=== PATIENT | male | born 1965 | race Caucasian/White ===

== ENCOUNTER → 2020-02-21 11:55 | Outpatient (BNVA) | payer MEDICARE, SELFPAY | PROVIDERS: Family Provider Nurse Practitioner Family; PCP Nurse Practitioner Family; Visit Provider Nurse Practitioner | DX: E11.9 Type 2 diabetes mellitus without complications (principal); E11.65 Type 2 diabetes mellitus with hyperglycemia; Z79.4 Long term (current) use of insulin; E61.1 Iron deficiency; E11.40 Type 2 diabetes mellitus with diabetic neuropathy, unspecified; E78.5 Hyperlipidemia, unspecified; I73.9 Peripheral vascular disease, unspecified; R82.998 Other abnormal findings in urine | CPT/HCPCS: 80053; 80061; 81003; 82044; 83036; 83540; 87077; 87086; 87186 ==

== ENCOUNTER → 2020-05-16 11:35 | Outpatient (BNVA) | payer MEDICARE, SELFPAY | PROVIDERS: Family Provider Nurse Practitioner Family; PCP Nurse Practitioner Family; Visit Provider Internal Medicine Cardiovascular Disease | DX: I10 Essential (primary) hypertension (principal); E11.65 Type 2 diabetes mellitus with hyperglycemia; Z79.4 Long term (current) use of insulin; E11.40 Type 2 diabetes mellitus with diabetic neuropathy, unspecified; E78.5 Hyperlipidemia, unspecified; I73.9 Peripheral vascular disease, unspecified | CPT/HCPCS: 80053; 83036 ==

== ENCOUNTER → 2020-05-26 10:35 | Outpatient (BNVA) | payer MEDICARE, SELFPAY | PROVIDERS: Family Provider Nurse Practitioner Family; PCP Nurse Practitioner Family; Visit Provider Nurse Practitioner | DX: E11.65 Type 2 diabetes mellitus with hyperglycemia (principal); Z79.4 Long term (current) use of insulin | CPT/HCPCS: 80053; 81003; 87077; 87086; 87186 ==

== ENCOUNTER → 2020-08-01 09:09 | Outpatient (BNVA) | payer MEDICARE, SELFPAY | PROVIDERS: Family Provider Nurse Practitioner Family; PCP Nurse Practitioner; Visit Provider Nurse Practitioner | DX: E11.65 Type 2 diabetes mellitus with hyperglycemia (principal); E78.2 Mixed hyperlipidemia; I10 Essential (primary) hypertension; Z79.4 Long term (current) use of insulin | CPT/HCPCS: 80053; 80061; 81003; 83036 ==

== ENCOUNTER → 2021-01-05 15:28 | Outpatient (BNVA) | payer MEDICARE, SELFPAY | PROVIDERS: Family Provider Nurse Practitioner Family; PCP Nurse Practitioner; Visit Provider Nurse Practitioner | DX: E11.65 Type 2 diabetes mellitus with hyperglycemia (principal); Z79.4 Long term (current) use of insulin; E11.40 Type 2 diabetes mellitus with diabetic neuropathy, unspecified; M25.551 Pain in right hip; M25.552 Pain in left hip; E78.2 Mixed hyperlipidemia; I10 Essential (primary) hypertension | CPT/HCPCS: 80053; 80061; 82043; 83036; 85025 ==

== ENCOUNTER → 2021-01-28 09:48 | Outpatient (BNVA) | payer MEDICARE, SELFPAY | PROVIDERS: Family Provider Nurse Practitioner Family; PCP Nurse Practitioner; Visit Provider Nurse Practitioner | DX: E11.65 Type 2 diabetes mellitus with hyperglycemia (principal); M25.551 Pain in right hip; M25.552 Pain in left hip; Z79.4 Long term (current) use of insulin; M54.41 Lumbago with sciatica, right side; M54.42 Lumbago with sciatica, left side | CPT/HCPCS: 72100; 73522 ==

== ENCOUNTER → 2021-02-17 11:14 | Outpatient (BNVA) | payer MEDICARE, SELFPAY | PROVIDERS: Family Provider Nurse Practitioner Family; PCP Nurse Practitioner; Visit Provider Nurse Practitioner | DX: R11.2 Nausea with vomiting, unspecified (principal) | CPT/HCPCS: 80053; 82150; 83690; 85025 ==

== ENCOUNTER → 2021-04-09 15:18 | Outpatient (BNVA) | payer MEDICARE, SELFPAY | PROVIDERS: Family Provider Nurse Practitioner Family; PCP Nurse Practitioner; Visit Provider Nurse Practitioner | DX: E11.65 Type 2 diabetes mellitus with hyperglycemia (principal); Z79.4 Long term (current) use of insulin; E78.2 Mixed hyperlipidemia; E11.40 Type 2 diabetes mellitus with diabetic neuropathy, unspecified; I10 Essential (primary) hypertension | CPT/HCPCS: 80053; 80061; 83036; 85025 ==

== ENCOUNTER 2021-07-20 13:14 | Outpatient (CLI) | payer MEDICARE, SELFPAY ==
--- NOTE | 2021-07-20 13:26 | XR_ITS ---
WS: [id number] LUMBAR SPINE: 3 VIEWS TECHNIQUE: AP, lateral and L5-S1 spot. HISTORY: I73.9 - Peripheral vascular disease, unspecified COMPARISON: 01/28/2021 Lumbar vertebra are normally aligned. Mild narrowing at L5-S1 disc space. Moderate facet joint arthritis at L5-S1. No osteoblastic or osteo lytic disease. SI joints are symmetric bilaterally. No soft tissue abnormalities. Ileostomy RIGHT lower quadrant and colostomy LEFT lower quadrant. Prior cholecystectomy. Short vascul ar stent projects in the location of the proximal LEFT iliac artery. Smaller stent distally in the ex pected location of the LEFT external iliac artery. XR/XR lumbar spine 2-3V* [id number] IMPRESSION: 1. Mild degenerative disc disease L5-S1 with moderate facet joint arthritis at L5-S1. 2. Atherosclerosis aorta. 3. No osteoblastic or osteolytic bone disease.
== END 2021-07-20 13:15 | disposition home or self-care (01) ==
PROVIDERS: PCP Nurse Practitioner; Visit Provider Nurse Practitioner
DX: I73.9 Peripheral vascular disease, unspecified (principal); M51.37 Other intervertebral disc degeneration, lumbosacral region; I70.0 Atherosclerosis of aorta; M47.817 Spondylosis without myelopathy or radiculopathy, lumbosacral region; E11.65 Type 2 diabetes mellitus with hyperglycemia; Z79.4 Long term (current) use of insulin
CPT/HCPCS: 72100; 80053; 80061; 83036; 85025

== ENCOUNTER → 2021-11-09 10:56 | Outpatient (BNVA) | payer MEDICARE, SELFPAY | PROVIDERS: PCP Nurse Practitioner; Visit Provider Nurse Practitioner | DX: E11.65 Type 2 diabetes mellitus with hyperglycemia (principal); Z79.4 Long term (current) use of insulin; I73.9 Peripheral vascular disease, unspecified; E11.40 Type 2 diabetes mellitus with diabetic neuropathy, unspecified; Z93.3 Colostomy status | CPT/HCPCS: 80053; 82043; 83036 ==

== ENCOUNTER 2022-01-17 21:33 | Inpatient (IN) | payer MEDICARE, SELFPAY ==
[2022-01-17 21:45] VITALS: BP 150/75; PULSE 106; RESP 18; TEMP 36.6; O2SAT 99; BMI 23.0
--- NOTE | 2022-01-17 22:35 | XRR_ITS ---
PROCEDURE INFORMATION: Exam: XR Left Hip Exam date and time: 01/17/2022 10:42 PM Age: 56 years old Clinical indication: Hip pain; Left hip TECHNIQUE: Imaging protocol: XR Left hip. Views: 2 or 3 views hip with pelvis when performed. COMPARISON: CR XR hip BI 3-4V wo/w pel [id number] 01/28/2021 9:52 AM FINDINGS: Bones/joints: Unremarkable. No acute fracture. Soft tissues: Unremarkable. Vasculature: There is a stent in the upper pelvis. XR/XR hip LT 2-3V wo/w pel* [id number] IMPRESSION: No acute bony abnormality.
[2022-01-18] VITALS (28 sets, daily range): BP systolic 107–161; BP diastolic 60–92; PULSE 60–102; RESP 9–29; TEMP 36.3–36.7; O2SAT 88–99
--- NOTE | 2022-01-18 00:02 | USR_ITS ---
PROCEDURE INFORMATION: Exam: US Duplex Left Lower Extremity Arteries Or Arterial Bypass Grafts Exam date and time: 01/18/2022 12:22 AM Age: 56 years old Clinical indication: Pain; Leg, lower; Left; Prior surgery; Surgery type: Stents in legs per PT; Additional info: Left lower extremity pain and unable to find pulse TECHNIQUE: Imaging protocol: Left Real-time duplex scan of the arteries or arterial bypass grafts of the left lower extremity with 2-D glez scale, color Doppler flow and spectral waveform analysis. Images documented and saved. COMPARISON: CT pelvis w con* [id number] 11/05/2017 10:16 PM FINDINGS: Left common femoral artery: No occlusion or significant stenosis. Monophasic waveform. Left superficial femoral artery: No occlusion or significant stenosis. Monophasic waveform. Left popliteal artery: No occlusion or significant stenosis. Monophasic waveform. Left calf/foot arteries: No occlusion or significant stenosis in the visualized arteries. Monophasic waveforms. Dorsalis pedis artery and the posterior tibial artery are not seen. US/CV arterial duplex [facility] [id number] IMPRESSION: Monophasic waveforms throughout suggesting diffuse atherosclerotic disease. The posterior tibial and dorsalis pedis arteries are not seen suggesting occlusion.
--- NOTE | 2022-01-18 00:22 | ED_ITS ---
HPI - Extremity Problem General: Chief complaint: Extremity Problem,Nontraumatic Stated complaint: Left Leg Pain Time Seen by Provider: 01/17/22 23:59 History of Present Illness: Patient is a 56-year-old male who comes to the ED with left leg pain and numbness. Past medical history of diabetes, hypertension and peripheral arterial disease. Patient has had femoral stents placed josue aterally. Over the past 3 days he is having pain in his left hip, left leg and some numbness to his foot. When not moving and at rest his pain is minimal but when he gets up moves around pain in his left hip and left leg becomes more severe. Denies any injury or trauma to the left leg or hip to cause symptoms. Associated symptoms: Deny chest pain, fever(s) or rash Review of Systems Const: Denies: fever(s), chills or fatigue Eyes: Denies: change in vision or eye discomfort ENMT: Denies: throat pain, odynophagia, nasal discharge or nasal congestion Card: Denies: chest pain, palpitations, edema, swelling of feet/ankles, dyspnea on exertion or orthopnea Resp: Denies: dyspnea, productive cough or non-productive cough GI: Denies: abdominal pain, nausea, vomiting, diarrhea, constipation or hematochezia : Denies: flank pain, difficulty urinating, dysuria or hematuria Musc: Reports: extremity pain (Left hip and left leg.); Denies: neck pain, back pain or extremity swelling Skin/Breast: Denies: rash or new lesions Neuro: Reports: numbness in extremities (Left foot numbness.); Denies: headache(s) or weakness in extremities PFS ED PFSH: Medical History Abnormal ankle brachial index (DEE) Colostomy present Controlled type 2 diabetes mellitus with hyperglycemia, with long-term current use of insulin Diabetes mellitus with hyperglycemia, with long-term current use of insulin Diabetic neuropathy HTN (hypertension) Hyperlipidemia PAD (peripheral artery disease) Presence of urostomy Type 2 diabetes mellitus with diabetic neuropathy, unspecified Surgical History History of cancer surgery Colon History of colostomy History of urostomy Family History Mother Diabetes Father Cancer Colon Social History Smoking and tobacco status: current every day smoker Second hand smoke exposure: Yes Smoking risk assessment/counseling performed?: Yes Alcohol intake: never Desire information about alcohol rehabilitation?: No Counseling given: No Desire information about substance/drug rehabilitation?: No Counseling given: No Adopted: No Caregiver/support person: No Lives independently: Yes Household members: none Housing: House Marital status: Single Number of children: 2 service: No Current occupational status: employed 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 Current gender identity: Male Physical Exam Const: COMMON NORMALS: patient oriented x3 and alert GENERAL APPEARANCE: cooperative HENMT: COMMON NORMALS: normocephalic HEAD & SCALP: normocephalic MOUTH: Normal oral and palatal mucosa present THROAT: posterior oropharynx normal and uvula midline Neck/C-Spine: COMMON NORMALS: supple GENERAL: Yes normal visual inspection Resp: COMMON NORMALS: normal respiratory effort, No retractions, No use of accessory muscles and clear to auscultation bilaterally AUSCULTATION: clear to auscultation bilaterally Cardio: COMMON NORMALS: regular rate, regular rhythm, S1 normal heart sound present, S2 normal heart sound present, No gallops present (Cardio), No clicks present (Cardio) and No murmurs present (Cardio) RATE: regular rate RHYTHM: regular rhythm HEART SOUNDS: S1 normal heart sound present and S2 normal heart sound present OTHER: Left foot popliteal pulse not detected. GI: COMMON NORMALS: Normal to inspection, nondistended, normoactive bowel sounds present, Soft to palpation, non-tender and no masses PALPATION: Yes Soft to palpation : COMMON NORMALS: Yes no CVA tenderness BLADDER/KIDNEY EXAM: Yes no CVA tenderness Back/Pelvis: COMMON NORMALS: no CVA tenderness Extremity: NARRATIVE EXTREMITY EXAM: Left foot?no palpable popliteal pulse. Foot is cold to the touch and pale. Cap refill on left foot is greater than 3 seconds. Neuro: COMMON NORMALS: patient oriented x3 and moves all extremities SENSORIUM/ORIENTATION: Yes alert Skin: GENERAL SKIN EXAM: dry skin Course ED course: Nurse used Doppler to try to find a pulse in the left foot and was unable to. Consultations: Consultation #1: I contacted Dr. Ricardo and told him about patient case and arterial ultrasound of left lower extremity findings. He wanted to have patient admitted and to start patient on a heparin drip and order CTA. Vital Signs: Vital signs: Vital Signs Temperature 97.6 F 01/18/22 02:33 Pulse Rate 89 01/18/22 02:47 Respiratory Rate 25 H 01/18/22 02:47 Blood Pressure 140/92 01/18/22 02:47 Pulse Oximetry 93 01/18/22 02:47 MDM - Extremity (Nontraumatic) Medical Decision Making Patient is a 56-year-old male comes to the ED with left lower extremity pain. He has a history of peripheral arterial disease and has had bilateral femoral stents placed. Pain started approximately 3 days ago and it worsens with activity and ambulation. He also reports numbness to left foot along with it being cold. Vitals are stable. Patient sitting comfortably on exam bed prior to the room. Left foot is pale and cold to touch and has abnormal cap refill. Left popliteal pulse not palpable. Doppler was used by nurse and unable to obtain left popliteal pulse as well. Ultrasound arterial done on left lower extremity and it showed some monophasic waveforms throughout suggesting diffuse atherosclerotic disease. The posterior tibial and dorsal pedis arteries are not seen suggesting occlusion. I contacted Dr. Ricardo and told him about patient case and arterial ultrasound of left lower extremity findings. He wanted to have patient admitted and to start patient on a heparin drip and order CTA. CBC was unremarkable. Creatinine was 1.3 but the rest of CMP was unremarkable. Dr. Bentley placed the admitting orders. Lab Data I reviewed the patient's lab results. : 01/18/22 00:11 01/18/22 00:11 Radiology Impressions Hip/Pelvis X-Ray 01/17/22 22:35 IMPRESSION: No acute bony abnormality. Duplex Scan Lower Extremity Artery 01/18/22 00:02 IMPRESSION: Monophasic waveforms throughout suggesting diffuse atherosclerotic disease. The posterior tibial and dorsalis pedis arteries are not seen suggesting occlusion. Aorta w/Runoff CTA 01/18/22 01:15 IMPRESSION: Stents in the left common iliac artery origin and external iliac artery. Occlusion of the left common iliac artery through external iliac artery with reconstitution of the common femoral artery via collaterals Minimal distal runoff bilaterally as described above. Extensive intra-abdominal surgical changes as described above. Correlate with the patient's clinical history. Laboratory Results WBC 10.0 10^3/uL (4.0-10.0) 01/18/22 00:11 RBC 4.83 10^6/uL (4.1-5.3) 01/18/22 00:11 Hgb 13.8 g/dL (11.7-16.6) 01/18/22 00:11 Hct 42.4 % (42.0-52.0) 01/18/22 00:11 MCV 87.8 fl (80-94) 01/18/22 00:11 MCH 28.6 pg (28.0-34.0) 01/18/22 00:11 MCHC 32.5 g/dL (30.0-36.0) 01/18/22 00:11 RDW 13.4 % (12.1-15.1) 01/18/22 00:11 Plt Count 200 10^3/cmm (130-400) 01/18/22 00:11 MPV 9.3 fL (7.4-10.4) 01/18/22 00:11 Neut % (Auto) 68.5 % 01/18/22 00:11 Lymph % (Auto) 21.9 % 01/18/22 00:11 [place] % (Auto) 7.8 % 01/18/22 00:11 Eos % (Auto) 1.0 % 01/18/22 00:11 Baso % (Auto) 0.6 % 01/18/22 00:11 Neut # (Auto) 6.83 10^3/uL (1.8-7.7) 01/18/22 00:11 Lymph # (Auto) 2.2 10^3/uL (0.8-4.8) 01/18/22 00:11 [place] # (Auto) 0.8 10^3/uL (0.2-0.9) 01/18/22 00:11 Eos # (Auto) 0.1 10^3/uL (0.0-0.8) 01/18/22 00:11 Baso # (Auto) 0.1 10^3/uL (0.0-0.1) 01/18/22 00:11 Nucleated RBC % (auto) 0 % 01/18/22 00:11 Nucleated RBCs # 0.0 /100WBC 01/18/22 00:11 PT 12.90 SECONDS (12.1-14.9) 01/18/22 00:11 INR 0.95 (0.8-1.2) 01/18/22 00:11 APTT 26.1 SECONDS (23.9-36.7) 01/18/22 00:11 Sodium 139 mmol/L (136-145) 01/18/22 00:11 Potassium 3.5 mmol/L (3.5-5.1) 01/18/22 00:11 Chloride 107 mmol/L (98-107) 01/18/22 00:11 Carbon Dioxide 18 mmol/L (22-29) L 01/18/22 00:11 Anion Gap 17.5 (5-19) 01/18/22 00:11 BUN 18 mg/dL (6-20) 01/18/22 00:11 Creatinine 1.3 mg/dL (0.7-1.2) H 01/18/22 00:11 GFR Calculation 57.5 mL/min (90-130) L 01/18/22 00:11 Glucose 47 mg/dL (65-115) L 01/18/22 00:11 Calculated Osmolality 287 mOsm/kg (285-295) 01/18/22 00:11 Calcium 9.5 mg/dL (8.5-10.5) 01/18/22 00:11 Total Bilirubin 0.3 mg/dL (0.15-1.2) 01/18/22 00:11 AST 13 U/L (0-40) 01/18/22 00:11 ALT 14 U/L (0-41) 01/18/22 00:11 Alkaline Phosphatase 110 IU/L (40-130) 01/18/22 00:11 Creatine Kinase 105 U/L (39-308) 01/18/22 00:11 Total Protein 7.4 g/dL (6.6-8.7) 01/18/22 00:11 Albumin 4.4 g/dL (3.5-5.2) 01/18/22 00:11 Globulin 3.0 g/dL (1.3-4.6) 01/18/22 00:11 Discharge Plan Discharge Patient Disposition: Placed in Observation Admit Provider: Real Avitia Coding Level of Care Code ED Optical Design Engineer for Chg Fwd Exam Comprehensive
[2022-01-18] MEDS: heparin 5,000 unit/mL INJ 1 mL 4000 UNIT IVP (01:04)
[2022-01-18] MEDS: heparin drip 25,000 UNIT/500 ML PREMIX 18.51 UNIT IV (01:07)
[2022-01-18 01:08] LABS: Basophils # 0.1 10^3/uL (0.0-0.1); Basophils % 0.6 %; Eosinophils # 0.1 10^3/uL (0.0-0.8); Hematocrit 42.4 % (42.0-52.0); Hemoglobin 13.8 g/dL (11.7-16.6); Lymphocytes # 2.2 10^3/uL (0.8-4.8); Lymphocytes % 21.9 %; Mean Corpuscular HGB Conc 32.5 g/dL (30.0-36.0); Mean Corpuscular Hemoglobin 28.6 pg (28.0-34.0); Mean Corpuscular Volume 87.8 fl (80-94); Mean Platelet Volume 9.3 fL (7.4-10.4); Monocytes # 0.8 10^3/uL (0.2-0.9); Monocytes % 7.8 %; Neutrophils # 6.83 10^3/uL (1.8-7.7); Neutrophils % 68.5 %; Nucleated Red Blood Cells % 0 %; Platelet Count 200 10^3/cmm (130-400); Red Blood Count 4.83 10^6/uL (4.1-5.3); Red Cell Distribution Width 13.4 % (12.1-15.1)
--- NOTE | 2022-01-18 01:15 | CTR_ITS ---
PROCEDURE INFORMATION: Exam: CTA Angiogram of the Abdominal Aorta and Bilateral Lower Extremities (Run-off) With IV Contrast Exam date and time: 01/18/2022 1:43 AM Age: 56 years old Clinical indication: Discoloration or erythema; Lower extremity; Left; Prior surgery; Surgery date: 6+ months; Patient HX: C/O lle painful and cold HX of stent HX of bladder and rectal CA; Additional info: Left leg pain and poor arterial flow in left leg below knee TECHNIQUE: Imaging protocol: CT angiogram of the abdominal aorta, pelvis and bilateral lower extremities with IV iodinated contrast. 3D rendering (Not supervised by radiologist): MIP and/or 3D reconstructed images were created by the technologist. Radiation optimization: All CT scans at this facility use at least one of these dose optimization techniques: automated exposure control; mA and/or kV adjustment per patient size (includes targeted exams where dose is matched to clinical indication); or iterative reconstruction. Contrast material: OMNI 350; Contrast volume: 95 ml; Contrast route: INTRAVENOUS (IV); COMPARISON: [place] [id number] 01/18/2022 12:22 AM RADIATION DOSE METRICS: Total DLP (mGy-cm): 1146.05 FINDINGS: Aorta: No aortic aneurysm. No aortic dissection. Celiac trunk and mesenteric arteries: No occlusion or significant stenosis. Renal arteries: No occlusion or significant stenosis. Right iliac arteries: There is atherosclerotic narrowing of the right common iliac artery. Right femoral/popliteal arteries: No occlusion or significant stenosis. Right infrapopliteal arteries: Contrast is seen in the right peroneal and anterior tibial arteries to just above the ankle. The posterior tibial artery is patent to the foot. Left iliac arteries: There is a stent at the origin of the left common iliac artery with severe stenosis in the stent likely due to intimal hyperplasia and there is an occluded stent in the left external iliac artery. There is occlusion of the common iliac artery immediately distal to the 1st stent. There is reconstitution of the left external iliac artery due to collaterals. There is occlusion of the left internal iliac artery. Left femoral/popliteal arteries: No occlusion or significant stenosis. Left infrapopliteal arteries: Contrast is seen in the left perineal and anterior tibial arteries to the mid calf. Posterior tibial artery is occluded at the ankle. Liver: No mass. Gallbladder and bile ducts: The patient has had a cholecystectomy. Pancreas: Unremarkable. No mass. No ductal dilation. Spleen: Normal. No splenomegaly. Adrenals: Normal. No mass. Kidneys and ureters: Normal. No mass. Stomach and bowel: Surgical suture material in loops of small bowel in the mid abdomen. There is a left lower quadrant colostomy which appears intact. Appendix: No evidence of appendicitis. Urinary bladder: The bladder has been removed there is a right lower quadrant ileal conduit which appears intact. Reproductive: Unremarkable as visualized. Intraperitoneal space: See Stomach and bowel finding. Lymph nodes: No lymphadenopathy. Bones/joints: No acute fracture. No dislocation. Soft tissues: Unremarkable. CT/CT angio abd aorta runof [id number] IMPRESSION: Stents in the left common iliac artery origin and external iliac artery. Occlusion of the left common iliac artery through external iliac artery with reconstitution of the common femoral artery via collaterals Minimal distal runoff bilaterally as described above. Extensive intra-abdominal surgical changes as described above. Correlate with the patient's clinical history.
[2022-01-18 01:18] LABS: INR 0.95 (0.8-1.2)
[2022-01-18 01:25] LABS: Alanine Aminotransferase 14 U/L (0-41); Albumin Level 4.4 g/dL (3.5-5.2); Alkaline Phosphatase 110 IU/L (40-130); Anion Gap 17.5 (5-19); Aspartate Amino Transferase 13 U/L (0-40); Blood Urea Nitrogen 18 mg/dL (6-20); Calcium 9.5 mg/dL (8.5-10.5); Carbon Dioxide 18 mmol/L (22-29); Chloride 107 mmol/L (98-107); Glomerular Filtration Rate 57.5 mL/min (90-130); Glucose 47 mg/dL (65-115); Osmolality Calculated 287 mOsm/kg (285-295); Potassium 3.5 mmol/L (3.5-5.1); Sodium 139 mmol/L (136-145); Total Bilirubin 0.3 mg/dL (0.15-1.2); Total Protein 7.4 g/dL (6.6-8.7)
--- NOTE | 2022-01-18 01:32 | PC.NURSE ---
patient was given orange juice after FSBG 52.
[2022-01-18] MEDS: iohexol 350 mg/mL 100 mL Btl IV (01:49)
--- NOTE | 2022-01-18 02:32 | PM.HP ---
Providers/Chief Complaint Admitting Physician: Real Avitia Primary Care Provider: Suha Ott, MECHE-C Chief Complaint: Left Leg Pain History of Present Illness Pleasant 56-year-old man with smoking addiction, DM2, HTN, HLD, PAD, history of left common iliac and external iliac stents placed in 2019 presented with several days of worsened pain, reports in both of legs, but worse on the left, with numbness, to touch left leg especially below the knee, pain with walking, numbness of the foot, is able to move the foot including distal foot, but not the toes. He continues to smoke. He is considering that he should quit. Review of Systems Const: Denies: fever(s), chills, body aches or malaise Eyes: Denies: change in vision or eye redness ENMT: Denies: throat pain, oral sores or ear or mastoid pain Card: Reports: leg pain with exertion; Denies: chest pain, edema, pre-syncope or dyspnea on exertion Resp: Denies: dyspnea, productive cough, change in phlegm color or hemoptysis GI: Denies: abdominal pain, nausea, vomiting, diarrhea, constipation, hematochezia or melena : Denies: flank pain, difficulty urinating, urinary frequency or hematuria Musc: Reports: extremity pain; Denies: back pain, joint swelling or joint redness Skin/Breast: Denies: rash, sores or new lesions Neuro: Reports: numbness in extremities; Denies: headache(s), weakness in extremities, dizziness, confusion or seizure-like activity Endo: Denies: polyuria or polydipsia Jeffrey/Lymph: Denies: easy bleeding or purpura All/Imm: Denies: urticaria, throat swelling or tongue swelling Medications/Allergies Home Medications Medication Instructions Recorded Confirmed Last Taken Type blood-glucose meter,continuous #1 each 04/07/20 11/09/21 Unknown Rx (Dexcom G6 Care Navigator) ondansetron 4 mg disintegrating 4 mg PO Q8H PRN #10 tab 02/17/21 11/09/21 Unknown Rx tablet clopidogrel 75 mg tablet See Rx Instructions .ROUTE 04/06/21 11/09/21 Unknown Rx .COMPLEX #90 tab simvastatin 40 mg tablet See Rx Instructions .ROUTE 04/06/21 11/09/21 Unknown Rx .COMPLEX #90 tab lisinopril 5 mg tablet 5 mg PO DAILY #90 tab 09/14/21 11/09/21 Unknown Rx blood-glucose sensor (Dexcom G6 #3 each 11/09/21 11/09/21 Unknown Rx Sensor) blood-glucose transmitter (Dexcom #1 ea 11/09/21 11/09/21 Unknown Rx G6 Transmitter) pen needle, diabetic 32 gauge x #100 each 11/09/21 11/09/21 Unknown Rx (BD Vicenta 2nd Gen Pen Needle) gabapentin 300 mg capsule 300 mg PO TID 30 Days #90 cap 01/13/22 Unknown Rx insulin aspart U-100 100 unit/mL See Rx Instructions SUBCUT TID #15 01/13/22 Unknown Rx (3 mL) subcutaneous pen (Novolog ml Flexpen U-100 Insulin aspart) insulin degludec 100 unit/mL (3 See Rx Instructions SUBCUT DAILY 01/13/22 Unknown Rx mL) subcutaneous pen (Tresiba #60 ml FlexTouch U-100 insulin) rivaroxaban 2.5 mg tablet (Xarelto) 2.5 mg PO BID #60 tab 01/13/22 Unknown Rx Allergies Allergy/AdvReac Type Severity Reaction Status Date / Time aspirin Allergy Unknown Unknown Verified 01/05/21 10:53 morphine Allergy Unknown Unknown Verified 01/05/21 10:53 dulaglutide [From [facility]] AdvReac Severe vomiting Verified 02/17/21 11:13 PFSH Acute PFSH: Medical History (Updated 01/18/22 @ 03:00 by Real Avitia MD) Abnormal ankle brachial index (DEE) Colostomy present Controlled type 2 diabetes mellitus with hyperglycemia, with long-term current use of insulin Diabetes mellitus with hyperglycemia, with long-term current use of insulin Diabetic neuropathy HTN (hypertension) Hyperlipidemia PAD (peripheral artery disease) Presence of urostomy Type 2 diabetes mellitus with diabetic neuropathy, unspecified Surgical History History of cancer surgery Colon History of colostomy History of urostomy Family History Mother Diabetes Father Cancer Colon Social History (Updated 01/18/22 @ 02:42 by Real Avitia MD) Smoking and tobacco status: current every day smoker Second hand smoke exposure: Yes Smoking risk assessment/counseling performed?: Yes Alcohol intake: never Desire information about alcohol rehabilitation?: No Counseling given: No Desire information about substance/drug rehabilitation?: No Counseling given: No Adopted: No Caregiver/support person: No Lives independently: Yes Household members: none Housing: House Marital status: Single Number of children: 2 service: No Current occupational status: employed 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 Current gender identity: Male Vitals/I&O/Wt Last Vital Signs Temp 97.9 F 01/17/22 21:45 Pulse 60 01/18/22 01:52 Resp 16 01/18/22 01:52 BP 128/77 01/18/22 01:52 Pulse Ox 96 01/18/22 01:52 Weight last 48 hrs Weight 77.111 kg Physical Exam Const: COMMON NORMALS: no acute distress and patient oriented x3 HENMT: COMMON NORMALS: oropharynx normal Neck/C-Spine: COMMON NORMALS: no JVD Resp: COMMON NORMALS: normal respiratory effort and clear to auscultation bilaterally AUSCULTATION: clear to auscultation bilaterally Cardio: COMMON NORMALS: no JVD, regular rhythm, S1 normal heart sound present, S2 normal heart sound present and No murmurs present (Cardio) RHYTHM: regular rhythm HEART SOUNDS: S1 normal heart sound present and S2 normal heart sound present PERIPHERAL PULSES: posterior tibial pulses not present (L) and dorsalis pedis pulses not present (L) GI: COMMON NORMALS: Normal to inspection, nondistended, normoactive bowel sounds present, Soft to palpation and non-tender PALPATION: Yes Soft to palpation Extremity: COMMON NORMALS: no joint enlargement and no pedal edema OTHER: Cool L lower extremity compared to the right. Slightly paler, no blue discoloration. No open wounds. Neuro: COMMON NORMALS: patient oriented x3 and moves all extremities Skin: COMMON NORMALS: no rashes or lesions noted GENERAL SKIN EXAM: no rashes or lesions noted OTHER: Hair loss on BL LE Data : 01/18/22 00:11 01/18/22 00:11 A&P Assessment and plan (1) Ischemia of left lower extremity: Acute limb ischemia of left lower extremity with pain, numbness, cannot move his toes, can move his foot. Monophasic flow noted on arterial duplex. Interventional cardiology was consulted in ER, started on heparin drip. CT angiogram aorta with runoff obtained. N.p.o. in anticipation of revascularization procedure. Neurovascular checks on CSU. Continue Plavix, statin. Hold Xarelto. Needs to stop smoking. History of bilateral femoral artery stents several years back. Reports intolerant of morphine in the past with confusion. He denies any issues with Dilaudid. Status: Acute (2) BILL (acute kidney injury): Mild BILL on CKD, creatinine up to 1.3. Usual creatinine 1.1-1.2. Discussed with him chronic kidney disease. He was not aware. Would benefit from outpatient follow-up. Hold lisinopril for now. Denies NSAID use. Check CK. Status: Acute (3) Smoking addiction: Discussed with him smoking cessation for 4 minutes. He is considering that he should quit. Discussed with him additional risks given underlying PAD including not only microvascular but also microvascular disease, risk of cardiovascular disease, in addition to other risks of lung disease, cancer. He is agreeable to this replacement as needed. Requested. Benefit from prescriptions at discharge. Status: Acute (4) PAD (peripheral artery disease): Past history of PAD with iliac artery stenting in 2019, although from initial report was said to have bilateral femoral stents. ICD iliac arteries, both common and external documented stented in cardiology visit back in 2019. Usually on Xarelto and could not remember the name of the other medication, I see Plavix prescription. Continues to smoke. Status: Chronic (5) Presence of urostomy: Urostomy bag in place. Status: Chronic (6) Colostomy present: In place. Denies any issues with colostomy or stool output. Status: Chronic Plan HTN HLD DM2 with diabetic neuropathy History of colon cancer Attestations Medical Necessity Statement*: Admission of over 2 midnights is anticipated versus management of acute limb ischemia with also present BILL on CKD. Coding Level of Care Code Acute Attache for Shaylee Arellano Diagnoses Ischemia of left lower extremity I99.8 BILL (acute kidney injury) N17.9 Smoking addiction F17.200 Presence of urostomy Z93.6 Colostomy present Z93.3 PAD (peripheral artery disease) I73.9
[2022-01-18 02:33] LABS: Partial Thromboplastin Time 26.1 SECONDS (23.9-36.7)
[2022-01-18 03:30] LABS: Creatine Phosphokinase 105 U/L (39-308)
[2022-01-18] MEDS: HYDROmorphone 1 mg/mL INJ 1 mL 0.5 MG IVP ×3 (03:49→19:43)
[2022-01-18 06:57] LABS: Glucose Point of Care 52 mg/dL (70-110)
[2022-01-18 06:57] LABS: Glucose Point of Care 105 mg/dL (70-110)
[2022-01-18 07:57] LABS: Partial Thromboplastin Time 75.5 SECONDS (23.9-36.7)
--- NOTE | 2022-01-18 08:04 | XACV_ITS ---
Ht: 183 cm Wt: 77 kg BSA: 1.98 m2 Any Known Allergies: Asprin Gender: Male : 1965 Exam Type: Invasive Peripheral Vascular Procedure(s): Procedure Description: Peripheral Cath Diagnostic Procedure Procedure Description: Abdominal aortic angiography Procedure Description: Iliac arterial aortic angiography Procedure Description: Lower extremities' angiography Procedure Description: Peripheral vascular Intervention Procedure Description: PV Balloon Exam Priority: Routine Lower Extremity Diagnostic Findings INDICATION: 56 year old male with PMH of hypertension, diabetes, PAD, prior left common and external iliac stents placed in 2019 presented with worsening bilateral leg pain for the last several days. However, left side worsened over the last 2-3 days. He was feeling some numbness and decided to come to the ER. Doppler ultrasound showed left sided system had monophasic waveform and DP and PT were not visualized. CTA was performed overnight that showed occluded left common iliac and external iliac arteries with reconstitution of the common femoral artery via collateral blood flow. Urgent peripheral angiogram with possible intervention for critical limb ischemia and rest leg pain.. Left common iliac artery: Patent stent. Distal to stent there is thrombotic occlusion. Left external iliac artery: Occluded stent Left common femoral artery: Has slow collateral filling Left SFA: Occluded Left profunda femoris: Fills with collateral flow Left popliteal artery: Occluded No below the knee flow is seen . Right common iliac artery: Ostial right common iliac artery has 70 to 80% stenosis. Distal common iliac artery is 70% stenosed. Right external iliac artery: Patent Right common femoral artery: 50% stenosis right SFA: Patent Right profunda artery: Patent Right lower extremity has two-vessel runoff to foot with patent anterior tibial and posterior tibial artery. Peroneal artery is occluded.. Lower Extremity Interventional Findings Procedure detail: We obtained access in right common femoral artery. Using UF catheter and Glidewire we crossed into right SFA. Using 5.0 x 40 mm balloon we performed angioplasty and distal common iliac artery and external iliac artery. We then performed balloon angioplasty with 6.0 x 200 mm balloon. Popliteal artery appeared to be occluded also. We performed balloon angioplasty with a 5.0 x 40 mm balloon. Final angiogram was performed which showed slow flow and below the knee arteries. There is significant disease in distal posterior tibial artery. At this time as flow was restored, we decided to remove the catheter and wire. 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 Left External Iliac Artery: 70% stenosis treated with AB [place] 35 ALCOHOL STILL OPERATOR Catheter [id number]. 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 There is severe left lower extremity disease. Recommendations We will start Eliquis 5 mg twice daily. Transfer to CSU. We will discuss outpatient staged procedure for revascularization of the right iliac arteries. Outpatient cardiology follow-up in 3 to 4-week. Hemodynamic Data Phase:Rest AO : 144.0 / 60.0 ( 88.0 ) @ 11:51:00 AM 124.0 / 58.0 ( 83.0 ) @ 11:51:00 AM Access Site Site: Right Femoral artery Sheath Size: 6 Fr Hemost... Method: Suture Hemost... Success: Successful Procedure Details Findings Pre-Procedure Time Out. Identified patient by full name and date of as verbalized by the patient/guarantor. Does the consent match the physician's order: Yes. Accurate & Complete Informed Consent: Yes. Inpatient/Outpatient History & Physical on Chart: Yes. If H&P is completed, is and addenduem needed: Yes; If yes, is the addendum complete: Yes. Visualize and Verify Site with Patient/Guarantor: N/A. Relevant Radiology Images available: Yes. Pre-op teaching completed and patient verbalized understanding. The risks, benefits, and alternatives of sedation and/or procedure were discussed by physician. The patient agrees to continue. Procedure started. Correct patient, site and procedure confirmed by cath team. Current diagnosis: PVD. PERRLA. Strong, equal hand auto inspection specialist bilaterally. Lungs clear x 5 lobes. IV Site on Arrival: 18 gauge in the left anticubital. IV Fluids: 0.9% NaCl at KVO. 0 mL infused prior to laboratory technology teacher. Pre Procedural Pulses: right posterior tibial was Doppled. Pre Procedural Pulses: right dorsalis pedis was Doppled. Pre Procedural Pulses: left dorsalis pedis was Absent. Pre Procedural Pulses: left posterior tibial was Absent. Oxygen started at 2liters/min via nasal canula. bilateral groins was prepped with chloroprep then draped in the usual sterile fashion. Physician notified. Baseline sample Acquired. HR: 76 BPM. Equipment: 6F - Femoral. Cardiac Cath Pack. ACIST Manifold Kit Model BT 2000. Heparinized Saline (2 units/mL), 1000 mL bag. Kit, Micropuncture. Physician arrived. Physician scrubbed in. Time out performed with cath team. Lidocaine 1% infiltrated to the right groin. Moon Sheridan RN, DRAWER FITTER was relieved by Raji Smith RN, DRAWER FITTER as monitoring person. Arterial access obtained. Admit Source: In Patient. A 5FrFr UF catheter in over wire. Wire removed. Glidewire inserted. Pigtail postioned above the bifurcation of the iliacs. Aortagram performed @ 10 mL/sec for a total of 30 mL. UF and glide advanced across the common iliac, Left. Glidewire advanced down the left SFA. UF catheter removed over the wire. Inventory is TR Glidewire Angled Stiff Shaft .035 260cm. Inflation number : 1 A AB [place] 35 OTW [id number] was prepped and advanced across the Common iliac, Left Common iliac, Left , then inflated to 8 FAY for 0:24 seconds. Inflation number: 2 The AB [place]ADA 35 OTW [id number] was reinflated across the Common iliac, Left Common iliac, Left, to 8 FAY for 0:24 seconds. Inflation number: 3 The AB [place] 35 OTW [id number] was reinflated across the Common iliac, Left Common iliac, Left, to 8 FAY for 1:05 seconds. Inflation number: 4 The AB [place] 35 OTW [id number] was reinflated across the Common iliac, Left Common iliac, Left, to 8 FAY for 0:33 seconds. Inflation number: 5 The AB [place] 35 OTW [id number] was reinflated across the Common iliac, Left Common iliac, Left, to 8 FAY for 0:36 seconds. Balloon out over the wire. RIM inserted over the glidewire. Positioned in the left common iliac. Left common iliac selected and arteriogram with runoff performed @ 10 mL/sec for a total of 30 mL. INVENTORY 5 FR UF AND 5 FR RIM catheters. Glidewire inserted through the RIM catheter. Wire advaned down the left SFA. Termination point- peroneal, Left. Inflation number : 1 A AB ARMADA 35 OTW [id number] was prepped and advanced across the Popliteal, Left Popliteal, Left , then inflated to 8 FAY for 1:34 seconds. Inflation number: 2 The AB ARMADA 35 OTW [id number] was reinflated across the Popliteal, Left Popliteal, Left, to 8 FAY for 1:01 seconds. Balloon out over the wire. Inflation number : 1 A AB [place] 35 ALCOHOL STILL OPERATOR Catheter [id number] was prepped and advanced across the External Iliac, Left , then inflated to 6 FAY for 1:33 seconds. Balloon out over the wire. Sheath upsized to a 6 Fr. Glidewire removed. Sheath injected in Left common femoral artery and runoff performed at 10 ml/sec for a total of 30 ml. Glidewire inserted to the left SFA. Seeker catheter inserted to the peroneal, Left. Glidewire removed. Hand injections performed of the trifurcation and popliteal left using DSA. Glidewire inserted. Seeker removed over the wire. Sheath exchanged for a 6fr short sheath. Sheath injected in Right common femoral artery and runoff performed at 10 ml/sec for a total of 30 ml. Physician review of films. A Suture was successful obtaining hemostatsis at the Right Femoral artery insertion site. Sheath(s) sutured into position with 2-0 silk and sterile 4x4's and Op-site applied over the site. No oozing or signs and symptoms of hematoma noted. Arterial sheath flushed and connected to tranducer and pressure bag with heparinized saline. Post Procedure: Pulses reassessed and unchanged. PERRLA. Strong, equal hand auto inspection specialist bilaterally. No VTE prophylaxis required. Post-op diagnosis: Total occlusion of left external Iliac artery. Total IV fluids: 70.9 mL. Fluoro: 10:05. Contrast type used: Visipaque 320 mgI/mL, 200 mL bottle. [id number]. Physician review of films. Scrubbed out. Complications: None. Estimated blood loss: 5mL-10mL. Responsiveness - Normal response to verbal stimuli; alert and oriented, PERRLA. Airway - Unaffected, no intervention required; spontaneous ventilation. Circulation: W/N/L, pulses unchanged. Nausea/Vomiting: No. Procedure completed. Patient transferred by bed to 1st floor. Vital chart was stopped. Vital chart was stopped. Procedure Medications Start: 10:41 AM Stop: 10:41 AM Medication: Versed Amount: 1 mg Route: I.V. Start: 10:42 AM Stop: 10:42 AM Medication: Fentanyl Amount: 50 mcg Route: I.V. Start: 10:46 AM Stop: 10:46 AM Medication: Versed Amount: 1 mg Route: I.V. Start: 10:46 AM Stop: 10:46 AM Medication: Fentanyl Amount: 50 mcg Route: I.V. Start: 11:03 AM Stop: 11:03 AM Medication: Versed Amount: 1 mg Route: I.V. Start: 11:03 AM Stop: 11:03 AM Medication: Fentanyl Amount: 50 mcg Route: I.V. Start: 11:09 AM Stop: : AM Medication: Heparin Amount: 5000 units Route: I.V. Start: 11: AM Stop: : AM Medication: Versed Amount: 1 mg Route: I.V. Start: 11: AM Stop: : AM Medication: Fentanyl Amount: 50 mcg Route: I.V. I, the attending physician, have reviewed and verified all procedure medications. Yes, all medications given per verbal order History/Risk Factors Hypertension: Yes Dyslipidemia: Yes Peripheral Arterial Disease (PAD): Yes Obesity: No Renal Disease: No Tobacco Use: Current/Recent(w/in 1 year) Prior Interventions PCI: No CABG: No Valve Surgery: No Report Signatures Finalized by Mario Ricardo MD on 01/28/2022 12:37 PM
[2022-01-18 08:05] LABS: Glucose Point of Care 92 mg/dL (70-110)
[2022-01-18] MEDS: clopidogrel 75 mg Tablet PO (08:20)
--- NOTE | 2022-01-18 09:01 | PC.PHAR ---
pt states he takes care of his own medications-pt states his plavix was dced a month or so ago ext med history shows last filled 12/25/21 90d/s-pt states it was changed to xarelto 2.5mg bid filled on 01/14/22 30d/s-notes are made in the pharmacy comments
--- NOTE | 2022-01-18 09:47 | PC.CHAP ---
Pastoral Care Encounter/Spiritual Assessment Type of Contact [] Declined guest specialist visit [] Patient/Family/Request visit [] Outpatient visit [] Follow-up visit [] Physician referral [] Code/Alert [x] Routine visit [] Staff referral [] Actively dying [] Patient sleeping [] Family support [] [] Out of room [] Palliative care [] [] Receiving care in room [] Pre-surgical visit [] Trauma [] Long length of stay [] ICU visit [] Other: Relational/Emotional Strength [] Patient feels connected with others/family/visitors/staff [] Distress [] Loneliness/isolation [] Abandonment Spirituality of Patient [] Person of Deisy [] Attends Taoism of their Deisy [] Believes in Prayer [] Reads Bible or Taoist materials [] There are Spiritual issues to be addressed Clerical Warehouseman Interventions [x] Prayer [] Active listening [] Non-anxious presence [] Spiritual/emotional support [] Crisis/trauma care [] Spiritual counseling [] Bereavement support [] Provided bereavement packet [] Provided Bible/devotional materials [] Provided toy/stuffed animal, coloring book to patient or family member [] Provided Communion [] Anointing/[place] [] Salvation [x] Completed spiritual assessment [] Other: Impact on Illness or Injury [] Angry [] Fearful [] Anxious [] Often cries [] Exhaustion [] Unable to work [] Unable to attend buddhism [] Unable to walk/stand [] Unable to read [] Unable to drive [] Unable to eat/drink [] Unable to sleep [] Unable to be with family [] Patient intubated [] Other: Summary Time spent with patient
--- NOTE | 2022-01-18 10:39 | PM.CONSULT ---
Providers/Reason For Consult Consulting Physician/Specialty*: Mario Ricardo MD/ Interventional Cardiology Reason for Consult*: Critical limb ischemia Requesting Physician: Dr Bentley Attending Physician: Cate Kuhn MD Primary Care Provider: CYNDY Arteaga History of Present Illness History of Present Illness Jose Rafael Silva is a 56 year old male with PMH of hypertension, diabetes, PAD, prior left common and external iliac stents placed in 2019 presented with worsening bilateral leg pain for the last several days. However, left side worsened over the last 2-3 days. He was feeling some numbness and decided to come to the ER. Doppler ultrasound showed left sided system had monophasic waveform and DP and PT were not visualized. CTA was performed overnight that showed occluded left common iliac and external iliac arteries with reconstitution of the common femoral artery via collateral blood flow. Review of Systems Const: Denies: fever(s), chills, body aches or malaise Eyes: Denies: change in vision or eye redness ENMT: Denies: throat pain, oral sores or ear or mastoid pain Card: Reports: leg pain with exertion; Denies: chest pain, edema, pre-syncope or dyspnea on exertion Resp: Denies: dyspnea, productive cough, change in phlegm color or hemoptysis GI: Denies: abdominal pain, nausea, vomiting, diarrhea, constipation, hematochezia or melena : Denies: flank pain, difficulty urinating, urinary frequency or hematuria Musc: Reports: extremity pain; Denies: back pain, joint swelling or joint redness Skin/Breast: Denies: rash, sores or new lesions Neuro: Reports: numbness in extremities; Denies: headache(s), weakness in extremities, dizziness, confusion or seizure-like activity Endo: Denies: polyuria or polydipsia Jeffrey/Lymph: Denies: easy bleeding or purpura All/Imm: Denies: urticaria, throat swelling or tongue swelling Medications/Allergies Home Medications Medication Instructions Recorded Confirmed Last Taken Type blood-glucose meter,continuous #1 each 04/07/20 01/18/22 Unknown Rx (Dexcom G6 Burial Needs Salesperson) blood-glucose sensor (Dexcom G6 #3 each 11/09/21 01/18/22 Unknown Rx Sensor) blood-glucose transmitter (Dexcom #1 ea 11/09/21 01/18/22 Unknown Rx G6 Transmitter) pen needle, diabetic 32 gauge x #100 each 11/09/21 01/18/22 Unknown Rx 5/32 (BD Vicenta 2nd Gen Pen Needle) gabapentin 300 mg capsule 300 mg PO TID 30 Days #90 cap 01/13/22 01/18/22 Unknown Rx insulin degludec 100 unit/mL (3 See Rx Instructions SUBCUT DAILY 01/13/22 01/18/22 Unknown Rx mL) subcutaneous pen (Tresiba #60 ml FlexTouch U-100 insulin) rivaroxaban 2.5 mg tablet (Xarelto) 2.5 mg PO BID #60 tab 01/13/22 01/18/22 Unknown Rx insulin aspart U-100 100 unit/mL 3 - 15 unit SUBCUT TID 01/18/22 01/18/22 Unknown History (3 mL) subcutaneous pen (Novolog Flexpen U-100 Insulin aspart) lisinopril 5 mg tablet 5 mg PO BEDTIME 01/18/22 01/18/22 Unknown History simvastatin 40 mg tablet 40 mg PO BEDTIME 01/18/22 01/18/22 Unknown History turmeric 400 mg capsule 400 mg PO BEDTIME 01/18/22 01/18/22 Unknown History Allergies Allergy/AdvReac Type Severity Reaction Status Date / Time aspirin Allergy Unknown Unknown Verified 01/18/22 08:55 morphine Allergy Unknown Unknown Verified 01/18/22 08:55 dulaglutide [From [facility]] AdvReac Severe vomiting Verified 01/18/22 08:55 Current Medications Generic Name Dose Route Start Last Admin Trade Name Freq PRN Reason Stop Dose Admin Clopidogrel Bisulfate 75 mg 01/18/22 09:00 01/18/22 08:20 Clopidogrel 75 Mg Tablet PO 75 mg DAILY DIDIER Administration Hydromorphone HCl 0.5 mg 01/18/22 02:56 01/18/22 03:49 Hydromorphone 1 Mg/Ml Inj 1 Ml IVP 0.5 mg Q4H PRN Administration SEVERE PAIN Heparin Sodium/Sodium Chloride 25,000 unit in 500 mls @ 18.507 mls/hr 01/18/22 01:00 01/18/22 09:30 Heparin Drip IV 10.7 unit/kg/hr .Q24H DIDIER 16.5 mls/hr Infusion 12 UNIT/KG/HR Insulin Human Lispro 0 unit 01/18/22 08:00 01/18/22 08:05 Insulin Lispro 100 Unit/1 Ml SUBCUT Not Given WM&BEDTIME DIDIER Protocol PFSH Acute PFSH: Medical History Abnormal ankle brachial index (DEE) Colostomy present Controlled type 2 diabetes mellitus with hyperglycemia, with long-term current use of insulin Diabetes mellitus with hyperglycemia, with long-term current use of insulin Diabetic neuropathy HTN (hypertension) Hyperlipidemia PAD (peripheral artery disease) Presence of urostomy Type 2 diabetes mellitus with diabetic neuropathy, unspecified Surgical History History of cancer surgery Colon History of colostomy History of urostomy Family History Mother Diabetes Father Cancer Colon Social History Smoking and tobacco status: current every day smoker Second hand smoke exposure: Yes Smoking risk assessment/counseling performed?: Yes Alcohol intake: never Desire information about alcohol rehabilitation?: No Counseling given: No Desire information about substance/drug rehabilitation?: No Counseling given: No Adopted: No Caregiver/support person: No Lives independently: Yes Household members: none Housing: House Marital status: Single Number of children: 2 service: No Current occupational status: employed 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 occupation: [employer] 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) Out of state: Yes Current gender identity: Male Vitals/I&O/Wt Last Vital Signs Temp 97.4 F L 01/18/22 06:56 Pulse 86 01/18/22 06:56 Resp 17 01/18/22 06:56 BP 131/82 01/18/22 06:56 Pulse Ox 97 01/18/22 06:56 01/17/22 01/18/22 01/18/22 22:59 06:59 14:59 Intake Total 155.175 / 155.175 Output Total 400 / 400 Balance -400 / -400 155.175 / 155.175 Weight last 48 hrs Weight 170 lb Weight 170 lb Physical Exam Const: COMMON NORMALS: no acute distress and patient oriented x3 Neck/C-Spine: COMMON NORMALS: no JVD Resp: COMMON NORMALS: clear to auscultation bilaterally AUSCULTATION: clear to auscultation bilaterally Cardio: COMMON NORMALS: no JVD, regular rate, regular rhythm, S1 normal heart sound present and S2 normal heart sound present RATE: regular rate RHYTHM: regular rhythm HEART SOUNDS: S1 normal heart sound present and S2 normal heart sound present GI: COMMON NORMALS: Soft to palpation PALPATION: Yes Soft to palpation Extremity: NARRATIVE EXTREMITY EXAM: Pulses not palpable in the left lower extremity. Foot is cooler than right foot but able to move and sensation is intact Neuro: COMMON NORMALS: patient oriented x3 Data : 01/18/22 00:11 01/18/22 00:11 A&P Assessment and plan (1) Smoking addiction: Status: Acute (2) Diabetes mellitus with hyperglycemia, with long-term current use of insulin: Status: Chronic Qualifiers: Diabetes mellitus type: type 2 Qualified Code(s): E11.65 - Type 2 diabetes mellitus with hyperglycemia; Z79.4 - skilled nursing (current) use of insulin (3) Type 2 diabetes mellitus with diabetic neuropathy, unspecified: Status: Chronic Qualifiers: Diabetes mellitus visual journalist insulin use: with visual journalist use Qualified Code(s): E11.40 - Type 2 diabetes mellitus with diabetic neuropathy, unspecified; Z79.4 - skilled nursing (current) use of insulin (4) Hyperlipidemia: Status: Chronic Qualifiers: Hyperlipidemia type: mixed hyperlipidemia Qualified Code(s): E78.2 - Mixed hyperlipidemia (5) PAD (peripheral artery disease): Status: Chronic (6) HTN (hypertension): Status: Chronic Qualifiers: Hypertension type: essential hypertension Qualified Code(s): I10 - Essential (primary) hypertension (7) Critical limb ischemia of left lower extremity: Status: Acute Plan Patient has presented with critical limb ischemia of the left lower extremity. Right leg has severe life style limiting claudication. CTA findings as above. We will plan on peripheral angiogram with possible intervention today. I had a detailed discussion with patient about risks and benefits of the procedure. Patient understands the risks and benefits and wants to proceed with the procedure NPO for now Continue heparin gtt till procedure Thank you for involving us with care of this patient. We will continue to follow. Please call with questions Consult Attestations Medical Necessity Statement: Care expected to cross 2 midnights. Coding Level of Care Code Acute Supervisor Housecleaner for g Fwd Diagnoses Smoking addiction F17.200 Diabetes mellitus with hyperglycemia, with long-term current use of insulin E11.65; Z79.4 Diabetes mellitus type: type 2 Type 2 diabetes mellitus with diabetic neuropathy, unspecified E11.40; Z79.4 Diabetes mellitus visual journalist insulin use: with halfway use Hyperlipidemia E78.2 Hyperlipidemia type: mixed hyperlipidemia PAD (peripheral artery disease) I73.9 HTN (hypertension) I10 Hypertension type: essential hypertension Critical limb ischemia of left lower extremity I70.222
--- NOTE | 2022-01-18 10:40 | W.PM.OPSUD ---
Surgery/Procedure H&P Update DATE OF PROCEDURE: January 18, 2022 DATE H&P PERFORMED: 01/18/22 H&P UPDATE INFORMATION: I have reviewed H&P completed within last 30 days, I have examined patient prior to procedure and No changes to prior documentation PREOP DIAGNOSIS: Critical limb ischemia of the left lower extremity PRIMARY INDICATION FOR PROCEDURE: Critical limb ischemia of the left lower extremity PLANNED PROCEDURE: Peripheral angiogram with possible percutaneous intervention PATIENT REASSESSED PRIOR TO SEDATION, WITH NO CHANGE NOTED: Yes PHYSICAL EXAM: alert, oriented x 3, clear to auscultation bilaterally and regular rate & rhythm AIRWAY EVAL/ANESTHESIA PLAN: ASA III, Monitored Anesthesia, Local Anesthesia, Risks, benefits & alternatives of sedation and/or procedure discussed and Patient agrees to continue as planned
--- NOTE | 2022-01-18 11:47 | PC.NURSE ---
Report received from WILLIAM Caban. Patient arrived from pit laborer at 11:47am via bed. Sheath site was checked by this nurse, WILLIAM Oliva, and WILLIAM Caban. No hematoma present and no oozing from site. Patient has been educated on activity restrictions and what to watch for regarding bleeding risks patient understands teaching. Vital signs will be monitored Q15min.
--- NOTE | 2022-01-18 12:03 | P.PN_ITS ---
Subjective Subjective: Status post peripheral angiogram. Left leg was totally occluded with some collateral flow. It was opened with balloon angioplasty, flow was good to the mid calf, he has severe peripheral vascular disease below his knees Once the sheath has been pulled, we will start Eliquis Vitals/I&O/Wt Last Vital Signs Temp 97.4 F L 01/18/22 06:56 Pulse 86 01/18/22 06:56 Resp 17 01/18/22 06:56 BP 131/82 01/18/22 06:56 Pulse Ox 97 01/18/22 06:56 01/17/22 01/18/22 01/18/22 22:59 06:59 14:59 Intake Total 155.175 / 155.175 Output Total 400 / 400 Balance -400 / -400 155.175 / 155.175 Weight last 48 hrs Weight 77.111 kg Weight 77.111 kg Physical Exam Narrative: Patient was laying in his bed Was complaining of pain at rest before angiogram Left foot was cold however I did not appreciate any ischemic ulcers Weak pulses S1, S2 Saturating well on room air Nonfocal neuro exam No joint swelling No sign of cellulitis No ischemic ulcers Data : 01/18/22 00:11 01/18/22 00:11 A&P Assessment and plan (1) Smoking addiction: Status: Acute (2) PAD (peripheral artery disease): Status: Chronic (3) Hyperlipidemia: Status: Chronic Qualifiers: Hyperlipidemia type: mixed hyperlipidemia Qualified Code(s): E78.2 - Mixed hyperlipidemia (4) HTN (hypertension): Status: Chronic Qualifiers: Hypertension type: essential hypertension Qualified Code(s): I10 - Essential (primary) hypertension (5) Ischemia of left lower extremity: Status: Acute (6) BILL (acute kidney injury): Status: Acute Plan Peripheral arterial disease Left ischemic leg Status post balloon angioplasty Start Eliquis after sheath has been pulled Advance diet to cardiac consistent carb Add Lantus 10 units at bedtime, add sliding scale Keep him on atorvastatin, Plavix, Patient is full code Nicotine patches Patient counseled on smoking cessation He is motivated to quit smoking Patient is normotensive for now Check A1c level Acute on chronic kidney disease, on review of previous records creatinine seems to be around 1.3, monitor closely Gentle hydration Attestations Medical Necessity Statement*: Continue hospitalization Time Spent in Patient Care: 20mins Coding Level of Care Code Acute Temporary Administrative Assistant for Kirsteng Fwd Diagnoses Smoking addiction F17.200 PAD (peripheral artery disease) I73.9 Hyperlipidemia E78.2 Hyperlipidemia type: mixed hyperlipidemia HTN (hypertension) I10 Hypertension type: essential hypertension Ischemia of left lower extremity I99.8 BILL (acute kidney injury) N17.9
[2022-01-18 12:21] LABS: Glucose Point of Care 122 mg/dL (70-110)
[2022-01-18 12:22] LABS: Estmated Average Glucose 180; Hemoglobin A1C 7.9 % (4.0-6.0)
--- NOTE | 2022-01-18 12:57 | PC.NURSE ---
Physician orders place nitro-bid 1inch on patients left foot if blood pressure greater than 130 systolic.
[2022-01-18] MEDS: nitroglycerin 1 gm/inch oint Pkt 1 INCH TOPICAL (13:12)
[2022-01-18] MEDS: sodium chloride 0.9% 1,000 ML 75 ML IV (13:14)
[2022-01-18 14:28] LABS: Glucose Point of Care 352 mg/dL (70-110)
--- NOTE | 2022-01-18 14:29 | PC.NURSE ---
Physician orders Give 15units humalog insulin NOW one time order.
[2022-01-18 14:40] LABS: Partial Thromboplastin Time 50.6 SECONDS (23.9-36.7)
[2022-01-18] MEDS: insulin lispro 100 unit/1 mL 15 UNIT SUBCUT (14:55)
--- NOTE | 2022-01-18 16:15 | PC.NURSE ---
sheath pull:right femoral arterial sheath pulled at 1530.manual pressure applied and held x 20 min.vss through-out procedure.no hematoma formation noted.right leg warm to touch and with brisk capillary refill.site dressed with 2x2 gauze and secured with biocclusive drsg.pt tolerated procedure well.instructed pt in activity restrictions and to notify staff for any bleeding,pain,numbness,or for any concerns at all.pt verb understanding of instructions
[2022-01-18 16:25] LABS: Glucose Point of Care 311 mg/dL (70-110)
[2022-01-18] MEDS: insulin lispro 100 unit/1 mL SUBCUT ×2 (17:56→20:52)
[2022-01-18 19:57] LABS: Glucose Point of Care 179 mg/dL (70-110)
[2022-01-18] MEDS: apixaban 5 mg Tablet PO (20:51)
[2022-01-18] MEDS: insulin glargine 100 units/1 mL 10 UNIT SUBCUT (20:52)
[2022-01-19] MEDS: sodium chloride 0.9% 1,000 ML 75 ML IV (01:46)
[2022-01-19 03:59] VITALS: BP 120/63; PULSE 86; RESP 16; TEMP 36.6; O2SAT 95
[2022-01-19 04:00] LABS: Basophils % 0.4 %; Eosinophils # 0.1 10^3/uL (0.0-0.8); Eosinophils % 1.3 %; Hematocrit 37.6 % (42.0-52.0); Hemoglobin 12.3 g/dL (11.7-16.6); Lymphocytes # 1.3 10^3/uL (0.8-4.8); Mean Corpuscular HGB Conc 32.7 g/dL (30.0-36.0); Mean Corpuscular Hemoglobin 28.8 pg (28.0-34.0); Mean Corpuscular Volume 88.1 fl (80-94); Mean Platelet Volume 9.1 fL (7.4-10.4); Monocytes # 0.6 10^3/uL (0.2-0.9); Monocytes % 5.7 %; Neutrophils # 7.63 10^3/uL (1.8-7.7); Neutrophils % 79.3 %; Nucleated Red Blood Cells % 0 %; Platelet Count 165 10^3/cmm (130-400); Red Blood Count 4.27 10^6/uL (4.1-5.3); Red Cell Distribution Width 13.8 % (12.1-15.1); White Blood Count 9.6 10^3/uL (4.0-10.0)
--- NOTE | 2022-01-19 04:10 | PC.NURSE ---
Pt rested quietly throughout night. VSS. Pain controlled with PRN pain meds. Groin dressing CDI. +3 pedal pulses via doppler. Pt managed urostomy and colostomy bags. Adequate UOP. Hourly rounding done. Pt frequently repositioned self independently. All needs met.
[2022-01-19 04:21] LABS: Alanine Aminotransferase 37 U/L (0-41); Albumin Level 3.7 g/dL (3.5-5.2); Alkaline Phosphatase 109 IU/L (40-130); Anion Gap 15.4 (5-19); Aspartate Amino Transferase 32 U/L (0-40); Blood Urea Nitrogen 17 mg/dL (6-20); Calcium 8.8 mg/dL (8.5-10.5); Carbon Dioxide 19 mmol/L (22-29); Chloride 107 mmol/L (98-107); Globulin 2.3 g/dL (1.3-4.6); Glomerular Filtration Rate 57.5 mL/min (90-130); Glucose 132 mg/dL (65-115); Osmolality Calculated 287 mOsm/kg (285-295); Potassium 4.4 mmol/L (3.5-5.1); Sodium 137 mmol/L (136-145); Total Bilirubin 0.5 mg/dL (0.15-1.2)
[2022-01-19 05:24] VITALS: PULSE 77
[2022-01-19 06:29] LABS: Glucose Point of Care 117 mg/dL (70-110)
[2022-01-19 07:21] VITALS: BP 118/69; PULSE 75; RESP 14; TEMP 36.8; O2SAT 95
--- NOTE | 2022-01-19 07:55 | P.PN_ITS ---
Subjective Subjective: Patient is doing well. Both PT and DP are dopplerable. Patient denies any leg pain. Vitals/I&O/Wt Last Vital Signs Temp 98.2 F 01/19/22 07:21 Pulse 75 01/19/22 07:21 Resp 14 01/19/22 07:21 BP 118/69 01/19/22 07:21 Pulse Ox 95 01/19/22 07:21 01/18/22 01/19/22 01/19/22 22:59 06:59 14:59 Intake Total 240 / 512.235 2472 / 2024.175 Output Total 1190 / 1740 Balance -950 / -141.833 3427 / 285.175 Weight last 48 hrs Weight 170 lb 9.6 oz Weight 170 lb Weight 170 lb Physical Exam Narrative: GENERAL: Patient is alert, awake and oriented x3. [] NECK: No jugular vein distension. [] HEENT: No cyanosis. No icterus. No pallor. [] HEART: Regular S1 and S2. No murmur, rub or gallop. [] LUNGS: Clear to auscultate bilaterally. [] ABDOMEN: Soft, nontender and nondistended. Positive bowel sounds. No guarding, rebound or tenderness. [] CENTRAL NERVOUS SYSTEM: Grossly nonfocal. [] EXTREMITIES: Lower extremities with 1+ edema bilaterally. Pulses dopplerable both PT and. Feet are warm. 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 (3) Type 2 diabetes mellitus with diabetic neuropathy, unspecified: Status: Chronic Qualifiers: Diabetes mellitus residential insulin use: with residential use Qualified Code(s): E11.40 - Type 2 diabetes mellitus with diabetic neuropathy, unspecified; Z79.4 - [facility] (current) use of insulin (4) Hyperlipidemia: Status: Chronic Qualifiers: Hyperlipidemia type: mixed hyperlipidemia Qualified Code(s): E78.2 - Mixed hyperlipidemia (5) PAD (peripheral artery disease): Status: Chronic (6) HTN (hypertension): Status: Chronic Qualifiers: Hypertension type: essential hypertension Qualified Code(s): I10 - Essential (primary) hypertension (7) Critical limb ischemia of left lower extremity: Status: Acute Plan Patient has presented with critical limb ischemia of the left lower extremity. Right leg has severe life style limiting claudication. Peripheral angiogram demonstrated total occlusion of distal left common iliac artery extending all the way down with only minor collateral blood flow noted below. He underwent successful revascularization of left lower extremity with balloon angioplasty of left common iliac, left external iliac, left common femoral, popliteal and TP segment. Had single-vessel runoff by the end of procedure. Anterior tibial and peroneal artery had flow to mid calf which is very slow. There were left for medical therapy with anticoagulation. Today both his posterior tibial and dorsalis pedis pulses are dopplerable, foot is warm and he is pain-free now. He is stable to be discharged with Eliquis 5 mg twice daily. Thank you for involving us with care of this patient. Outpatient cardiology follow-up in 2 weeks. Please call with questions Attestations Medical Necessity Statement*: Care expected to cross 2 midnights. Coding Level of Care Code Acute Cloth Shearing Supervisor for Kirsteng Fwd Diagnoses Smoking addiction F17.200 Diabetes mellitus with hyperglycemia, with long-term current use of insulin E11.65; Z79.4 Diabetes mellitus type: type 2 Type 2 diabetes mellitus with diabetic neuropathy, unspecified E11.40; Z79.4 Diabetes mellitus residential insulin use: with residential use Hyperlipidemia E78.2 Hyperlipidemia type: mixed hyperlipidemia PAD (peripheral artery disease) I73.9 HTN (hypertension) I10 Hypertension type: essential hypertension Critical limb ischemia of left lower extremity I70.222
[2022-01-19] MEDS: apixaban 5 mg Tablet PO (08:33)
[2022-01-19] MEDS: clopidogrel 75 mg Tablet PO (08:33)
--- NOTE | 2022-01-19 08:56 | PM.DCS ---
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 (3) Type 2 diabetes mellitus with diabetic neuropathy, unspecified: Status: Chronic Qualifiers: Diabetes mellitus adjunct faculty for medical terminology insulin use: with adjunct faculty for medical terminology use Qualified Code(s): E11.40 - Type 2 diabetes mellitus with diabetic neuropathy, unspecified; Z79.4 - half-way (current) use of insulin (4) Hyperlipidemia: Status: Chronic Qualifiers: Hyperlipidemia type: mixed hyperlipidemia Qualified Code(s): E78.2 - Mixed hyperlipidemia (5) PAD (peripheral artery disease): Status: Chronic (6) HTN (hypertension): Status: Chronic Qualifiers: Hypertension type: essential hypertension Qualified Code(s): I10 - Essential (primary) hypertension (7) Critical limb ischemia of left lower extremity: Status: Acute Reason for Visit Reason for Visit: Left Leg Pain Hospital Course Hospital Course Mr. Silva is a 56-year-old male, who has been actively smoking more than a pack a day has history of type 2 diabetes hypertension peripheral arterial disease history of left common iliac and external iliac stents placed in 2019 presented to the hospital with worsening of left leg pain. He was diagnosed with critical limb ischemia, anticoagulating patient was started right away, he went for coronary angiogram. Angiogram was done on 01/18, successful revascularization, of left lower extremity with balloon angioplasty of left common iliac, left external iliac, left common femoral, popliteal and TP segment.? Had single-vessel runoff by the end of procedure.? Anterior tibial and peroneal artery had flow to mid calf which is very slow.? There were left for medical therapy with anticoagulation. He has severe lifestyle limiting peripheral arterial disease on right side, decision was made to treat him medically with Plavix and Eliquis 5 mg twice a day. He will follow up with Dr. Ricardo Foot pain has improved, left leg is warm with palpable pulses. Patient was counseled on smoking cessation, he is motivated and ready to quit. Physical Exam Narrative: Patient was laying in his bed comfortably Left foot is warm with palpable pulses S1, S2 Saturating well on room air Nonfocal neuro exam No joint swelling No sign of cellulitis No ischemic ulcers Discharge Data Studies Completed and Pending Completed Studies During Hospitalization Category Date Time Status CTA runoff [CT angio abd aorta runof 66928] Urgent Cat Scan 01/18/22 01:15 Completed XR hip LT 2-3V wo/w pel* [id number] Stat Exams 01/17/22 22:35 Completed US arterial duplex lower extremity LT [CV arterial Ultrasound 01/18/22 00:02 [place] [id number]] Urgent Pending at discharge Category Date Time Status DEGREASER request for service Routine Exams 01/18/22 08:04 Taken Complete Blood Count w/Auto AM LABS Lab 01/20/22 04:00 Ordered Complete Blood Count w/Auto AM LABS Lab 01/21/22 04:00 Ordered Comprehensive Metabolic Panel AM LABS Lab 01/20/22 04:00 Ordered Comprehensive Metabolic Panel AM LABS Lab 01/21/22 04:00 Ordered Radiology Impressions Hip/Pelvis X-Ray 01/17/22 22:35 IMPRESSION: No acute bony abnormality. Duplex Scan Lower Extremity Artery 01/18/22 00:02 IMPRESSION: Monophasic waveforms throughout suggesting diffuse atherosclerotic disease. The posterior tibial and dorsalis pedis arteries are not seen suggesting occlusion. Aorta w/Runoff CTA 01/18/22 01:15 IMPRESSION: Stents in the left common iliac artery origin and external iliac artery. Occlusion of the left common iliac artery through external iliac artery with reconstitution of the common femoral artery via collaterals Minimal distal runoff bilaterally as described above. Extensive intra-abdominal surgical changes as described above. Correlate with the patient's clinical history. Laboratory Results WBC 9.6 10^3/uL (4.0-10.0) 01/19/22 03:45 RBC 4.27 10^6/uL (4.1-5.3) 01/19/22 03:45 Hgb 12.3 g/dL (11.7-16.6) 01/19/22 03:45 Hct 37.6 % (42.0-52.0) L 01/19/22 03:45 MCV 88.1 fl (80-94) 01/19/22 03:45 MCH 28.8 pg (28.0-34.0) 01/19/22 03:45 MCHC 32.7 g/dL (30.0-36.0) 01/19/22 03:45 RDW 13.8 % (12.1-15.1) 01/19/22 03:45 Plt Count 165 10^3/cmm (130-400) 01/19/22 03:45 MPV 9.1 fL (7.4-10.4) 01/19/22 03:45 Neut % (Auto) 79.3 % 01/19/22 03:45 Lymph % (Auto) 13.0 % 01/19/22 03:45 Cannon % (Auto) 5.7 % 01/19/22 03:45 Eos % (Auto) 1.3 % 01/19/22 03:45 Baso % (Auto) 0.4 % 01/19/22 03:45 Neut # (Auto) 7.63 10^3/uL (1.8-7.7) 01/19/22 03:45 Lymph # (Auto) 1.3 10^3/uL (0.8-4.8) 01/19/22 03:45 Cannon # (Auto) 0.6 10^3/uL (0.2-0.9) 01/19/22 03:45 Eos # (Auto) 0.1 10^3/uL (0.0-0.8) 01/19/22 03:45 Baso # (Auto) 0.0 10^3/uL (0.0-0.1) 01/19/22 03:45 Nucleated RBC % (auto) 0 % 01/19/22 03:45 Nucleated RBCs # 0.0 /100WBC 01/19/22 03:45 PT 12.90 SECONDS (12.1-14.9) 01/18/22 00:11 INR 0.95 (0.8-1.2) 01/18/22 00:11 APTT 50.6 SECONDS (23.9-36.7) H 01/18/22 14:10 Sodium 137 mmol/L (136-145) 01/19/22 03:45 Potassium 4.4 mmol/L (3.5-5.1) 01/19/22 03:45 Chloride 107 mmol/L (98-107) 01/19/22 03:45 Carbon Dioxide 19 mmol/L (22-29) L 01/19/22 03:45 Anion Gap 15.4 (5-19) 01/19/22 03:45 BUN 17 mg/dL (6-20) 01/19/22 03:45 Creatinine 1.3 mg/dL (0.7-1.2) H 01/19/22 03:45 GFR Calculation 57.5 mL/min (90-130) L 01/19/22 03:45 Glucose 132 mg/dL (65-115) H 01/19/22 03:45 POC Glucose 117 mg/dL (70-110) H 01/19/22 06:20 Estimat Average Glucose 180 01/18/22 00:11 Hemoglobin A1c 7.9 % (4.0-6.0) H 01/18/22 00:11 Calculated Osmolality 287 mOsm/kg (285-295) 01/19/22 03:45 Calcium 8.8 mg/dL (8.5-10.5) 01/19/22 03:45 Total Bilirubin 0.5 mg/dL (0.15-1.2) 01/19/22 03:45 AST 32 U/L (0-40) 01/19/22 03:45 ALT 37 U/L (0-41) 01/19/22 03:45 Alkaline Phosphatase 109 IU/L (40-130) 01/19/22 03:45 Creatine Kinase 105 U/L (39-308) 01/18/22 00:11 Total Protein 6.0 g/dL (6.6-8.7) L 01/19/22 03:45 Albumin 3.7 g/dL (3.5-5.2) 01/19/22 03:45 Globulin 2.3 g/dL (1.3-4.6) 01/19/22 03:45 Vitals Last Vital Signs Temp 98.2 F 01/19/22 07:21 Pulse 75 01/19/22 07:21 Resp 14 01/19/22 07:21 BP 118/69 01/19/22 07:21 Pulse Ox 95 01/19/22 07:21 Discharge Plan Discharge Patient Disposition: Home Condition: Stable Prescriptions: New omeprazole 10 mg capsule,delayed release(DR/EC) 10 mg PO DAILY Qty: 60 3RF nicotine 14 mg/24 hr patch 24 hour 1 patch transdermal DAILY Qty: 7 0RF clopidogrel 75 mg Tablet 75 mg PO DAILY Qty: 60 3RF atorvastatin 40 mg Tablet 80 mg PO BEDTIME Qty: 60 3RF Eliquis 5 mg tablet 5 mg PO BID Qty: 120 2RF nicotine 7 mg/24 hr patch 24 hour 1 patch transdermal DAILY Qty: 7 1RF nicotine [Nicoderm CQ] 21 mg/24 hr patch 24 hour 1 patch transdermal DAILY Qty: 14 0RF Continued (DME) pen needle, diabetic [BD Vicenta 2nd Gen Pen Needle] 32 gauge x 5/32 needle See Rx Instructions .ROUTE .MEDSUPPLY Qty: 100 5RF Rx Instructions: As directed ([facility] [place]) Dexcom G6 Transmitter Device See Rx Instructions .ROUTE .MEDSUPPLY Qty: 1 4RF Rx Instructions: use every 12 week (DME) Dexcom G6 Sensor Device See Rx Instructions .ROUTE .MEDSUPPLY Qty: 3 5RF Rx Instructions: check glucose level 4 or more times day ([facility] [place]) Dexcom G6 Recording Studio Setup Worker Misc See Rx Instructions .ROUTE .MEDSUPPLY Qty: 1 0RF Rx Instructions: As directed gabapentin 300 mg capsule 300 mg PO TID 30 Days Qty: 90 0RF Tresiba FlexTouch U-100 100 unit/mL (3 mL) insulin pen See Rx Instructions SUBCUT DAILY Qty: 60 0RF Rx Instructions: up to 60 units SUBCUT at bedtime turmeric 400 mg Capsule 400 mg PO BEDTIME 0RF simvastatin 40 mg tablet 40 mg PO BEDTIME 0RF lisinopril 5 mg tablet 5 mg PO BEDTIME 0RF Novolog Flexpen U-100 Insulin 100 unit/mL (3 mL) insulin pen 3 - 15 unit SUBCUT TID 0RF Rx Instructions: with meals Discontinued Xarelto 2.5 mg tablet 2.5 mg PO BID Qty: 60 0RF Rx Instructions: Holding Plavix Discharge Orders: Discharge Order (Routine); Ordered 01/19/22 Ordered By: Cate Kuhn Referrals: Suha Ott, [employer] [Primary Care Provider] - Mario Ricardo M.D [Physician] - 2 weeks Discharge Diet: Cardiac Discharge Activity: Increase activity as tolerated Patient Instructions: How to Stop Smoking (DC), Cigarette Smoking and Your Health (GEN), Peripheral Vascular Stent Placement (DC), Peripheral Vascular Angioplasty (DC), Opioid Safety Discharge Attestations Time Spent in Discharge Care*: less than 30 min Quality Metrics Clinical Quality Measures [ No reported AMI, CVA or VTE this stay] Coding Level of Care Code Acute Chg FW DC note Diagnoses Smoking addiction F17.200 Diabetes mellitus with hyperglycemia, with long-term current use of insulin E11.65; Z79.4 Diabetes mellitus type: type 2 Type 2 diabetes mellitus with diabetic neuropathy, unspecified E11.40; Z79.4 Diabetes mellitus adjunct faculty for medical terminology insulin use: with retirement use Hyperlipidemia E78.2 Hyperlipidemia type: mixed hyperlipidemia PAD (peripheral artery disease) I73.9 HTN (hypertension) I10 Hypertension type: essential hypertension Critical limb ischemia of left lower extremity I70.222
[2022-01-19 09:40] VITALS: BP 126/66; PULSE 95; RESP 18; O2SAT 97
== END 2022-01-19 10:30 | disposition home or self-care (01) | DRG 253 ==
LOC: ER 01-18 01:32 → CSU 01-18 02:04
PROVIDERS: Emergency Medicine; Internal Medicine; Admitting Provider Internal Medicine; Emergency Provider Physician Assistant; PCP Nurse Practitioner; Visit Provider Internal Medicine
PROC: B410YZZ Fluoroscopy of Abdominal Aorta using Other Contrast (ICD-10-PCS; principal; 2022-01-18 11:00)
PROC: B410YZZ Fluoroscopy of Abdominal Aorta using Other Contrast (ICD-10-PCS; 2022-01-18 11:00)
DX: E11.51 Type 2 diabetes mellitus with diabetic peripheral angiopathy without gangrene (principal); N17.9 Acute kidney failure, unspecified; E11.65 Type 2 diabetes mellitus with hyperglycemia; I70.222 Atherosclerosis of native arteries of extremities with rest pain, left leg; E78.2 Mixed hyperlipidemia; Z79.4 Long term (current) use of insulin; F17.200 Nicotine dependence, unspecified, uncomplicated; Z95.828 Presence of other vascular implants and grafts; Z79.02 Long term (current) use of antithrombotics/antiplatelets; Z93.6 Other artificial openings of urinary tract status; Z93.3 Colostomy status; N18.9 Chronic kidney disease, unspecified; I12.9 Hypertensive chronic kidney disease with stage 1 through stage 4 chronic kidney disease, or unspecified chronic kidney disease
CPT/HCPCS: 36415; 36416; 37220; 37224; 73502; 75625; 75635; 75716; 80053; 82550; 82962; 83036; 85025; 85610; 85730; 93926; 96365; 96372; 96375; 99285; C1725; C1769; C1887; C1894; J1170; J1644; J1815 ×2; J2250; J3010; J7030; Q9967

== ENCOUNTER → 2022-08-17 15:08 | Outpatient (BNVA) | payer SELFPAY | PROVIDERS: PCP Nurse Practitioner; Visit Provider Nurse Practitioner | DX: E11.65 Type 2 diabetes mellitus with hyperglycemia (principal); Z79.4 Long term (current) use of insulin; I10 Essential (primary) hypertension | CPT/HCPCS: 80053; 80061; 83036 ==

== ENCOUNTER → 2023-02-10 10:29 | Outpatient (BNVA) | payer SELFPAY | PROVIDERS: PCP Nurse Practitioner; Visit Provider Nurse Practitioner | DX: E11.65 Type 2 diabetes mellitus with hyperglycemia (principal); Z79.4 Long term (current) use of insulin | CPT/HCPCS: 80053; 80061; 83036; 85025 ==

== ENCOUNTER 2023-04-24 14:24 | Emergency (ER) | payer SELFPAY ==
[2023-04-24 14:47] VITALS: BP 128/76; PULSE 96; RESP 14; O2SAT 95; BMI 22.3
--- NOTE | 2023-04-24 15:39 | CTR_ITS ---
PROCEDURE INFORMATION: Exam: CTA Abdominal Aorta and Bilateral Lower Extremities (Run-off) With Contrast Exam date and time: 04/24/2023 4:51 PM Age: 57 years old Clinical indication: Other: Pvd, ischemic lower extremities; Prior surgery; Surgery date: 6+ months; Surgery type: Colon bladder TECHNIQUE: Imaging protocol: Computed tomographic angiography of the of the abdominal aorta, pelvis and bilateral lower extremities with contrast. 3D rendering (Not supervised by radiologist): MIP and/or 3D reconstructed images were created by the technologist. Radiation optimization: All CT scans at this facility use at least one of these dose optimization techniques: automated exposure control; mA and/or kV adjustment per patient size (includes targeted exams where dose is matched to clinical indication); or iterative reconstruction. Contrast material: OMNI 350; Contrast volume: 100 ml; Contrast route: INTRAVENOUS (IV); REPORTING DATA: Count of CT and Cardiac NM exams in prior 12 months: This patient has received 0 known CTs and 0 known cardiac nuclear medicine studies in the 12 months prior to the current study. COMPARISON: CT angio abd aorta runof [id number] 01/18/2022 1:43 AM RADIATION DOSE METRICS: Total DLP (mGy-cm): 519.66 FINDINGS: Aorta: No aortic aneurysm. No aortic dissection. Celiac trunk and mesenteric arteries: No occlusion or significant stenosis. Renal arteries: No occlusion or significant stenosis. Right iliac arteries: No occlusion or significant stenosis. Right femoral/popliteal arteries: No occlusion or significant stenosis. Right infrapopliteal arteries: No occlusion or significant stenosis. Left iliac arteries: No occlusion or significant stenosis. Left femoral/popliteal arteries: No occlusion or significant stenosis. Left infrapopliteal arteries: No occlusion or significant stenosis. Liver: No mass. Gallbladder and bile ducts: Stable cholecystectomy. Pancreas: Unremarkable. No mass. No ductal dilation. Spleen: Normal. No splenomegaly. Adrenal glands: Normal. No mass. Kidneys and ureters: One or more focal cortical defects in the left kidney, representing sequela from previous infection or infarction. Left renal simple cyst measuring >1.0 cm. One or more focal cortical defects in the right kidney, representing sequela from previous infection or infarction. Stable right anterior abdominal wall urostomy/ileal conduit. Bilateral ureteral ileostomies with mild bilateral hydronephrosis. Stomach and bowel: Left bowel anastomosis consistent with previous partial bowel resection. Stable resection of the rectosigmoid colon. Stable left colostomy. Right bowel anastomosis consistent with previous partial bowel resection with ileocolostomy. Appendix: No evidence of appendicitis. Urinary bladder: Stable cystectomy. Reproductive: Unremarkable as visualized. Intraperitoneal space: Unremarkable. No free air. No significant fluid collection. Lymph nodes: No lymphadenopathy. Bones/joints: No acute fracture. No dislocation. Soft tissues: Unremarkable. CT/CT angio abd aorta runof [id number] IMPRESSION: 1. Stable resection of the rectosigmoid colon. 2. Stable left colostomy. 3. Stable cystectomy. 4. Stable right anterior abdominal wall urostomy/ileal conduit. 5. Bilateral ureteral ileostomies with mild bilateral hydronephrosis. 6. Right bowel anastomosis consistent with previous partial bowel resection with ileocolostomy.
--- NOTE | 2023-04-24 15:56 | W.ED.EXTPRO ---
HPI - Extremity Problem General: Chief complaint: Extremity Problem,Nontraumatic Stated complaint: Legs numb and hurting, overall weakness Time Seen by Provider: 04/24/23 15:39 Source: patient Mode of arrival: ambulatory History of Present Illness: 57-year-old male presents emergency room with complaints of numbness and pain in his legs. Patient gets severe intermittent claudication he thinks he can walk approximately 100 yards at which time he is gets severe enough pain he has to stop and rest for at least 15 minutes before he can try to walk again. Last year he had some work done on lower extremity arteries however he is post have a more extensive work done in a staged fashion according to the angiography report but he never did follow through on that. He had previously had some revascularization done as well but never any bypass surgeries for the lower extremities. He is a smoker he is also a 13-year survivor of colon cancer has a colostomy and a urostomy bag due to his previous colon cancer. MD Complaint: extremity pain Pain Consistency: intermittent and now resolved Location: left, right and lower extremity Quality: aching Radiation: distal Relieving factors: rest Exacerbating factors: walking Associated symptoms: Deny arthralgias, chest pain, fever(s), myalgias, rash or short of breath Review of Systems Const: Denies: fever(s) or chills Card: Denies: chest pain, palpitations or irregular heart rhythm Resp: Denies: dyspnea, productive cough or non-productive cough GI: Denies: abdominal pain, nausea, vomiting, hematemesis, coffee ground emesis, diarrhea, constipation, bloating, hematochezia or melena : Denies: flank pain, dysuria, urinary frequency or urinary urgency Skin/Breast: Denies: rash PFSH ED PFSH: Medical History (Updated 04/24/23 @ 18:40 by Michael Deng DO) Abnormal ankle brachial index (DEE) BILL (acute kidney injury) Colostomy present Diabetes mellitus with hyperglycemia, with long-term current use of insulin Diabetic neuropathy HTN (hypertension) Hyperlipidemia Ischemia of left lower extremity PAD (peripheral artery disease) Presence of urostomy Smoking addiction Type 2 diabetes mellitus with diabetic neuropathy, unspecified Surgical History History of cancer surgery Colon History of colostomy History of urostomy Family History Mother Diabetes Father Cancer Colon Social History Smoking and tobacco status: current every day smoker Second hand smoke exposure: Yes Smoking risk assessment/counseling performed?: Yes Alcohol intake: never Desire information about alcohol rehabilitation?: No Counseling given: No Substance/Drug Use: unknown Desire information about substance/drug rehabilitation?: No Counseling given: No Adopted: No Caregiver/support person: No Lives independently: Yes Household members: none Housing: House Marital status: Single Number of children: 2 service: No Current occupational status: employed Current occupation: [employer] Do you think of yourself as: Straight/Heterosexual Current gender identity: Male Physical Exam Const: GENERAL APPEARANCE: cooperative and comfortable ORIENTATION/CONSCIOUSNESS: Yes awake, Yes oriented to person, Yes oriented to place and Yes oriented to time HENMT: COMMON NORMALS: normocephalic, atraumatic and hearing grossly normal bilaterally HEAD & SCALP: normocephalic and atraumatic Resp: COMMON NORMALS: normal respiratory effort, No retractions, No use of accessory muscles and clear to auscultation bilaterally AUSCULTATION: clear to auscultation bilaterally Cardio: COMMON NORMALS: regular rate, regular rhythm and No murmurs present (Cardio) RATE: regular rate RHYTHM: regular rhythm GI: COMMON NORMALS: Soft to palpation and No hepatosplenomegaly present AUSCULTATION: Yes normoactive bowel sounds PALPATION: Yes Soft to palpation, No Tenderness to palpation present (GI), No Guarding due to palpation present (GI) and Yes No hepatosplenomegaly present Extremity: NARRATIVE EXTREMITY EXAM: Warm to the touch no palpable pulse Neuro: SENSORIUM/ORIENTATION: Yes oriented to person, Yes oriented to place and Yes oriented to time Skin: COMMON NORMALS: no rashes or lesions noted GENERAL SKIN EXAM: no rashes or lesions noted Course Vital Signs: Vital signs: Vital Signs Pulse Rate 84 04/24/23 19:11 Respiratory Rate 16 04/24/23 19:11 Blood Pressure 130/72 04/24/23 19:11 Pulse Oximetry 98 04/24/23 19:11 Oxygen Delivery Me thod Room Air 04/24/23 18:26 MDM - Extremity (Nontraumatic) Medical Decision Making Initial radiology read on the runoff was in normal. Which was concerning because the patient had said that he previously had been told he needed further revascularization work done. An addendum was placed. Reviewed with the patient there is collateral flow is not acutely ischemic but should have his revascularization work done we will encourage him to follow-up with Dr. Ricardo's office for definitive care continue his previously prescribed medications at this time. Medical Records I reviewed the patient's medical records. Lab Data I reviewed the patient's lab results. 04/24/23 15:50 04/24/23 15:50 Radiology Impressions Aorta w/Runoff CTA 04/24/23 15:39 IMPRESSION: 1. Stable resection of the rectosigmoid colon. 2. Stable left colostomy. 3. Stable cystectomy. 4. Stable right anterior abdominal wall urostomy/ileal conduit. 5. Bilateral ureteral ileostomies with mild bilateral hydronephrosis. 6. Right bowel anastomosis consistent with previous partial bowel resection with ileocolostomy. ADDENDUM: 04/24/231827 Impression: 7. 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 Continued absence of the ALBERT. 8. Bilateral patent main renal arteries with small bilateral accessory renal arteries. 9.Calcification of the abdominal aorta and/or iliac arteries consistent with atherosclerotic vessel disease. 10. Interval worsening of 90% stenosis of the right common iliac artery secondary to noncalcified plaque or thrombus. 11. 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 12. Three-vessel runoff to the right ankle with non dominant peroneal artery. 13. Patent left common iliac artery endovascular stent. 14. Patent left external iliac endovascular stent. 15. 80-90% stenosis in the mid left external iliac artery just distal to the endovascular stent. 16. Three-vessel runoff to the left ankle with non dominant peroneal artery. ADDENDUM: 04/24/231841 THIS REPORT CONTAINS FINDINGS THAT MAY BE CRITICAL TO PATIENT CARE. The findings were verbally communicated via telephone conference with Dr. Clinton Chin at 6:40 PM CDT on 04/24/2023. The findings were acknowledged and understood. Laboratory Results WBC 8.6 10^3/uL (4.0-10.0) 04/24/23 15:50 RBC 4.51 10^6/uL (4.1-5.3) 04/24/23 15:50 Hgb 13.2 g/dL (11.7-16.6) 04/24/23 15:50 Hct 41.0 % (42.0-52.0) L 04/24/23 15:50 MCV 90.9 fl (80-94) 04/24/23 15:50 MCH 29.3 pg (28.0-34.0) 04/24/23 15:50 MCHC 32.2 g/dL (30.0-36.0) 04/24/23 15:50 RDW 13.0 % (12.1-15.1) 04/24/23 15:50 Plt Count 181 10^3/cmm (130-400) 04/24/23 15:50 MPV 9.5 fL (7.4-10.4) 04/24/23 15:50 Neut % (Auto) 73.1 % 04/24/23 15:50 Lymph % (Auto) 17.1 % 04/24/23 15:50 [place] % (Auto) 7.1 % 04/24/23 15:50 Eos % (Auto) 2.1 % 04/24/23 15:50 Baso % (Auto) 0.4 % 04/24/23 15:50 Neut # (Auto) 6.26 10^3/uL (1.8-7.7) 04/24/23 15:50 Lymph # (Auto) 1.5 10^3/uL (0.8-4.8) 04/24/23 15:50 [place] # (Auto) 0.6 10^3/uL (0.2-0.9) 04/24/23 15:50 Eos # (Auto) 0.2 10^3/uL (0.0-0.8) 04/24/23 15:50 Baso # (Auto) 0.0 10^3/uL (0.0-0.1) 04/24/23 15:50 Nucleated RBC % (auto) 0 % 04/24/23 15:50 Nucleated RBCs # 0.0 /100WBC 04/24/23 15:50 PT 12.90 SECONDS (12.1-14.9) 04/24/23 15:50 INR 0.94 (0.8-1.2) 04/24/23 15:50 APTT 25.6 SECONDS (23.9-36.7) 04/24/23 15:50 Sodium 133 mmol/L (136-145) L 04/24/23 15:50 Potassium 5.2 mmol/L (3.5-5.1) H 04/24/23 15:50 Chloride 100 mmol/L (98-107) 04/24/23 15:50 Carbon Dioxide 23 mmol/L (22-29) 04/24/23 15:50 Anion Gap 15.2 (5-19) 04/24/23 15:50 BUN 16 mg/dL (6-20) 04/24/23 15:50 Creatinine 1.3 mg/dL (0.7-1.2) H 04/24/23 15:50 GFR Calculation 57.3 mL/min (90-130) L 04/24/23 15:50 Glucose 163 mg/dL (65-115) H 04/24/23 15:50 Calculated Osmolality 281 mOsm/kg (285-295) L 04/24/23 15:50 Calcium 9.2 mg/dL (8.5-10.5) 04/24/23 15:50 Total Bilirubin 0.3 mg/dL (0.15-1.2) 04/24/23 15:50 AST 20 U/L (0-40) 04/24/23 15:50 ALT 19 U/L (0-41) 04/24/23 15:50 Alkaline Phosphatase 106 U/L (40-130) 04/24/23 15:50 Total Protein 7.0 g/dL (6.6-8.7) 04/24/23 15:50 Albumin 4.1 g/dL (3.5-5.2) 04/24/23 15:50 Globulin 2.9 g/dL (1.3-4.6) 04/24/23 15:50 Discharge Plan Discharge Patient Disposition: Home Clinical Impression: PAD (peripheral artery disease) Condition: Stable Prescriptions: No Action (DME) pen needle, diabetic [BD Vicenta 2nd Gen Pen Needle] 32 gauge x needle See Rx Instructions .ROUTE .MEDSUPPLY Qty: 100 5RF Rx Instructions: As directed Eliquis 5 mg tablet 5 mg PO DAILY atorvastatin 40 mg tablet 80 mg PO BEDTIME Qty: 180 1RF Rx Instructions: Stop Zocor clopidogrel 75 mg tablet 75 mg PO DAILY Qty: 90 1RF Rx Instructions: Taking Eliquis and Plavix gabapentin 300 mg capsule 300 mg PO TID Qty: 270 1RF Novolog FlexPen U-100 Insulin 100 unit/mL (3 mL) insulin pen 3 - 15 unit SUBCUT TID Qty: 15 2RF Rx Instructions: with meals Lantus Solostar U-100 Insulin 100 unit/mL (3 mL) insulin pen See Rx Instructions SUBCUT QAM Qty: 15 2RF Rx Instructions: up to 60U SUBCUT every morning; Stop Tresiba lisinopril 10 mg tablet 10 mg PO BEDTIME Qty: 90 1RF omeprazole 10 mg capsule,delayed release(DR/EC) 10 mg PO DAILY Qty: 1 0RF Rx Instructions: OTC turmeric 400 mg Capsule 400 mg PO BEDTIME Discharge Orders: Discharge ED (Routine); Ordered 04/24/23 Ordered By: Michael Deng Referrals: Suha Ott, SENIOR STORAGE ADMINISTRATOR-C [Primary Care Provider] - Discharge Diet: Usual diet Discharge Activity: Limit activity as instructed Patient Instructions: Opioid Safety, Pain Management Activity Restrictions/Additional Instructions: You do have significant peripheral artery disease for lower extremities and is likely the cause of your symptoms. It is not occluded at this time acutely. Recommend that you follow-up with Dr. Mariscal as soon as you are able. Avoid strenuous activities or walking for long distances. Coding Level of Care Code ED Industrial Chemist for Shaylee Arellano
[2023-04-24 16:02] VITALS: BP 110/64; PULSE 90; O2SAT 97
[2023-04-24 16:17] LABS: Basophils % 0.4 %; Eosinophils # 0.2 10^3/uL (0.0-0.8); Eosinophils % 2.1 %; Hemoglobin 13.2 g/dL (11.7-16.6); Lymphocytes # 1.5 10^3/uL (0.8-4.8); Lymphocytes % 17.1 %; Mean Corpuscular HGB Conc 32.2 g/dL (30.0-36.0); Mean Corpuscular Hemoglobin 29.3 pg (28.0-34.0); Mean Corpuscular Volume 90.9 fl (80-94); Mean Platelet Volume 9.5 fL (7.4-10.4); Monocytes # 0.6 10^3/uL (0.2-0.9); Monocytes % 7.1 %; Neutrophils # 6.26 10^3/uL (1.8-7.7); Neutrophils % 73.1 %; Nucleated Red Blood Cells % 0 %; Platelet Count 181 10^3/cmm (130-400); Red Blood Count 4.51 10^6/uL (4.1-5.3); White Blood Count 8.6 10^3/uL (4.0-10.0)
[2023-04-24 16:30] VITALS: BP 119/66; PULSE 95; O2SAT 97
[2023-04-24 16:36] LABS: INR 0.94 (0.8-1.2)
[2023-04-24 16:37] LABS: Partial Thromboplastin Time 25.6 SECONDS (23.9-36.7)
[2023-04-24 16:43] LABS: Alanine Aminotransferase 19 U/L (0-41); Albumin Level 4.1 g/dL (3.5-5.2); Alkaline Phosphatase 106 U/L (40-130); Anion Gap 15.2 (5-19); Aspartate Amino Transferase 20 U/L (0-40); Blood Urea Nitrogen 16 mg/dL (6-20); Calcium 9.2 mg/dL (8.5-10.5); Carbon Dioxide 23 mmol/L (22-29); Chloride 100 mmol/L (98-107); Globulin 2.9 g/dL (1.3-4.6); Glomerular Filtration Rate 57.3 mL/min (90-130); Glucose 163 mg/dL (65-115); Osmolality Calculated 281 mOsm/kg (285-295); Potassium 5.2 mmol/L (3.5-5.1); Sodium 133 mmol/L (136-145); Total Bilirubin 0.3 mg/dL (0.15-1.2)
[2023-04-24] MEDS: iohexol 350 mg/mL 500 mL Btl (per mL) IV (17:00)
[2023-04-24 17:30] VITALS: BP 123/74; PULSE 85; O2SAT 98
[2023-04-24 18:26] VITALS: BP 122/71; PULSE 82; O2SAT 97
[2023-04-24 19:11] VITALS: BP 130/72; PULSE 84; RESP 16; O2SAT 98
== END 2023-04-24 19:08 | disposition home or self-care (01) ==
PROVIDERS: Emergency Provider Family Medicine; PCP Nurse Practitioner
DX: I73.9 Peripheral vascular disease, unspecified (principal); Z79.01 Long term (current) use of anticoagulants; Z79.02 Long term (current) use of antithrombotics/antiplatelets; Z79.4 Long term (current) use of insulin; F17.210 Nicotine dependence, cigarettes, uncomplicated; E11.9 Type 2 diabetes mellitus without complications; I10 Essential (primary) hypertension; E78.5 Hyperlipidemia, unspecified
CPT/HCPCS: 75635; 80053; 85025; 85610; 85730; 99285; Q9967

== ENCOUNTER → 2023-09-15 14:07 | Outpatient (BNVA) | payer SELFPAY | PROVIDERS: PCP Nurse Practitioner; Visit Provider Nurse Practitioner | DX: I73.9 Peripheral vascular disease, unspecified (principal); E78.2 Mixed hyperlipidemia; E11.40 Type 2 diabetes mellitus with diabetic neuropathy, unspecified; E11.65 Type 2 diabetes mellitus with hyperglycemia | CPT/HCPCS: 80053; 80061; 83036; 85025 ==

== ENCOUNTER → 2024-03-15 14:35 | Outpatient (BNVA) | payer SELFPAY | PROVIDERS: PCP Nurse Practitioner; Visit Provider Nurse Practitioner | DX: E11.9 Type 2 diabetes mellitus without complications (principal); N39.0 Urinary tract infection, site not specified | CPT/HCPCS: 80053; 80061; 81000; 82607; 83036; 87077; 87086; 87184 ==

== ENCOUNTER 2024-05-24 10:18 | Emergency (ER) | payer SELFPAY ==
[2024-05-24] VITALS (20 sets, daily range): BP systolic 106–155; BP diastolic 54–83; PULSE 11–130; RESP 16–28; TEMP 36.8; O2SAT 95–100; BMI 22.3
[2024-05-24 10:39] LABS: Basophils # 0.1 10^3/uL (0.0-0.1); Basophils % 0.4 %; Eosinophils % 0.1 %; Hematocrit 34.8 % (37-53); Lymphocytes # 0.4 10^3/uL (0.8-4.8); Lymphocytes % 2.5 %; Mean Corpuscular HGB Conc 32.8 g/dL (30-55); Mean Corpuscular Hemoglobin 28.9 pg (27-33); Mean Corpuscular Volume 88.1 fl (82-101); Mean Platelet Volume 10.4 fL (7.4-10.4); Monocytes # 0.5 10^3/uL (0.2-0.9); Monocytes % 3.6 %; Neutrophils # 13.56 10^3/uL (1.8-7.7); Neutrophils % 92.9 %; Nucleated Red Blood Cells % 0 %; Platelet Count 104 10^3/cmm (157-399); Red Blood Count 3.95 10^6/uL (3.85-5.65); Red Cell Distribution Width 15.5 % (12.1-15.1); White Blood Count 14.61 10^3/uL (3.29-11.43)
--- NOTE | 2024-05-24 10:46 | CT_ITS ---
WS: [id number] CT ABDOMEN AND PELVIS WITH CONTRAST HISTORY: abd pain TECHNIQUE: Imaging performed of the abdomen and pelvis with IV contrast. Single phase imaging of the abdomen. Coronal and sagittal reformats are submitted. All CT scans at [facility] use at [address] one of these dose optimization techniques: automated exposure control; mA and/or kV adjustment per patient size (includes targeted exams where dose is matched to clinical indication); or iterative re construction. IV CONTRAST: Omnipaque 350; 100 mL IV. Oral contrast: No DLP: 377.60 mGy.cm COMPARISON: 04/24/2023 Lower thorax: Lung bases are clear. Heart is normal size. Small hiatal hernia. Mild gastroesophageal thickening at the GE junction. Liver/biliary system: Normal size with no intrahepatic dilatation. Gallbladder: Prior cholecystectomy. Pancreas: Normal size pancreas and pancreatic duct. No adjacent inflammation. Spleen: Normal size spleen. No mass or infarct. Adrenal glands: Normal. Right kidney: Abnormal appearance of the RIGHT kidney. RIGHT kidney is enlarged and there are multipl e areas of decreased attenuation throughout the kidney. Some of these are wedge-shaped. Developing lela cent centers within the areas of decreased attenuation and nonenhancement. Marked perinephric strandi ng. There is mild dilatation of the renal pelvis and ureter. Patient is status post ureteral ileostom y. Left kidney: Very mild perinephric stranding. Small amount of fluid adjacent to the kidney is similar to the prior study from 04/24/2023. No obstruction. No mass. Aorta: Extensive atherosclerosis. Very dense heavy calcification in the distal aorta and iliac arteri es. Bilateral iliac artery stents. 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 Please see the CT angiogram report from the 04/24/2023 for further details. Lymphadenopathy: None. Free fluid: None. GI tract: Normally distended stomach. No small bowel obstruction. Status post resection of the rectos igmoid colon. LEFT colostomy. RIGHT abdominal wall urostomy/ileal conduit. Bilateral ureteral ileosto mies. Abdominal wall: Ostomy sites are noted bilaterally within the abdominal wall. Pelvis: No free fluid or adenopathy within the pelvis. Bones: Unremarkable. CT/CT abdomen pelvis w con* [id number] IMPRESSION: 1. Multifocal, diffuse right-sided pyelonephritis with a few developing absces ses. RIGHT kidney is enlarged with perinephric stranding. Mild periureteral str anding proximally. 2. No LEFT renal pyelonephritis or abscess. 3. Patient is status post extensive prior colon surgeries with resection and b ilateral ureteral ileostomies. 4. Extensive vascular calcifications which have been previously described. 5. Circumferential thickening at the GE junction. Suggest further evaluation b y upper endoscopy. The extent of submucosal thickening and edema is more than t ypically noted. Neoplasm needs to be excluded.
--- NOTE | 2024-05-24 10:48 | ED_ITS ---
HPI - Nausea/Vomiting/Diarrhea 2 General: Chief complaint: Nausea/Vomiting/Diarrhea Stated complaint: n/v, weakness Time Seen by Provider: 05/24/24 10:23 History of Present Illness: 58-year-old male presents to the emergen cy room with complaints of persistent nausea vomiting weakness. Has a history of colon cancer last 4 days he has had persistent nausea and vomiting. He has both a urostomy and a colostomy which were placed back around 2009 or when he first was diagnosed he is not currently getting any treatment has no known recurrence of his colon cancer. Patient was given 1 L of fluids and route he is tachycardic on arrival no known history of atrial fibrillation he denies any chest pain. He is a diabetic he is currently on apixaban. Associated nausea: Yes Associated symtoms: Reports fatigue, malaise and nausea; Denies chest pain or dysuria Review of Systems 2 Const: Reports: body aches, fatigue and malaise; Denies: fever(s) or chills Card: Denies: chest pain Resp: Denies: dyspnea GI: Reports: abdominal pain, nausea and vomiting; Denies: hematochezia or melena : Denies: dysuria, urinary frequency or urinary urgency Musc: Denies: neck pain or back pain Skin/Breast: Denies: rash PFSH ED 2 PFSH: Medical History Smoking addiction BILL (acute kidney injury) Ischemia of left lower extremity Abnormal ankle brachial index (DEE) Presence of urostomy Colostomy present Diabetes mellitus with hyperglycemia, with long-term current use of insulin Type 2 diabetes mellitus with diabetic neuropathy, unspecified Diabetic neuropathy Hyperlipidemia HTN (hypertension) PAD (peripheral artery disease) Surgical History History of cancer surgery Colon History of colostomy History of urostomy Family History Mother Diabetes Father Cancer Colon Social History Smoking and tobacco/nicotine status: tobacco/nicotine user, details unknown Second hand smoke exposure: Yes Alcohol intake: never Substance/Drug Use: unknown Adopted: No Caregiver/support person: No Lives independently: Yes Household members: none Housing: House Marital status: Single Number of children: 2 service: No Current occupational status: employed Current occupation: [employer] Do you think of yourself as: Straight/Heterosexual Current gender identity: Male Physical Exam 2 Const: GENERAL APPEARANCE: cooperative and comfortable O RIENTATION/CONSCIOUSNESS: Yes awake, Yes oriented to person, Yes oriented to place and Yes oriented to time HENMT: COMMON NORMALS: normocephalic, atraumatic and hearing grossly normal bilaterally HEAD & SCALP: normocephalic and atraumatic Resp: COMMON NORMALS: normal respiratory effort, No retractions, No use of accessory muscles and clear to auscultation bilaterally AUSCULTATION: clear to auscultation bilaterally Cardio: COMMON NORMALS: No murmurs present (Cardio) RATE: tachycardic R HYTHM: abnormal rhythm irregularly irregular GI: COMMON NORMALS: Soft to palpation and No hepatosplenomegaly present A USCULTATION: Yes normoactive bowel sounds PALPATION: Yes Soft to palpation, No Tenderness to palpation present (GI), No Guarding due to palpation present (GI) and Yes No hepatosplenomegaly present OTHER: Urostomy and colostomy bags present no redness erythema no signs of stomal hernias Extremity: COMMON NORMALS: normal to inspection, capillary refill normal, no clubbing, cyanosis or edema, no calf tenderness and no pedal edema Neuro: SENSORIUM/ORIENTATION: Yes oriented to person, Yes oriented to place and Yes oriented to time Skin: COMMON NORMALS: no rashes or lesions noted GENERAL SKIN EXAM: no rashes or lesions noted Course 2 Vital Signs: Vital signs: Vital Signs Temperature 98.3 F 05/24/24 10:29 Pulse Rate 100 05/24/24 22:07 Respiratory Rate 18 05/24/24 22:07 Blood Pressure 113/54 05/24/24 22:07 Pulse Oximetry 97 05/24/24 22:07 Oxygen Delivery Me thod Room Air 05/24/24 18:26 MDM - Nausea/Vomiting/Diarrhea Medical Decision Making Patient presents septic with pyelonephritis with abscesses forming on the right kidney per the CT read. Additionally he is in new onset A-fib and acute renal failure. Cultures done as well as fluid bolus. Patient given IV fluids started on Cardizem for rate control. He is feeling better. At time of change of shift discussed with Dr. Bynum he will monitor the patient we have already had excepting at [facility] we are waiting on a room assignment to complete transfer Lab Data 05/24/24 10:33 05/24/24 10:33 Radiology Impressions Abdomen/Pelvis CT 05/24/24 10:46 IMPRESSION: 1. Multifocal, diffuse right-sided pyelonephritis with a few developing abscesses. RIGHT kidney is enlarged with perinephric stranding. Mild periureteral stranding proximally. 2. No LEFT renal pyelonephritis or abscess. 3. Patient is status post extensive prior colon surgeries with resection and bilateral ureteral ileostomies. 4. Extensive vascular calcifications which have been previously described. 5. Circumferential thickening at the GE junction. Suggest further evaluation by upper endoscopy. The extent of submucosal thickening and edema is more than typically noted. Neoplasm needs to be excluded. Laboratory Results WBC 14.61 10^3/uL (3.29-11.43) H 05/24/24 10:33 RBC 3.95 10^6/uL (3.85-5.65) 05/24/24 10:33 Hgb 11.40 g/dL (11.27-16.99) 05/24/24 10:33 Hct 34.8 % (37-53) L 05/24/24 10:33 MCV 88.1 fl (82-101) 05/24/24 10:33 MCH 28.9 pg (27-33) 05/24/24 10:33 MCHC 32.8 g/dL (30-55) 05/24/24 10:33 RDW 15.5 % (12.1-15.1) H 05/24/24 10:33 Plt Count 104 10^3/cmm (157-399) L 05/24/24 10:33 MPV 10.4 fL (7.4-10.4) 05/24/24 10:33 Neut % (Auto) 92.9 % 05/24/24 10:33 Lymph % (Auto) 2.5 % 05/24/24 10:33 [place] % (Auto) 3.6 % 05/24/24 10:33 Eos % (Auto) 0.1 % 05/24/24 10:33 Baso % (Auto) 0.4 % 05/24/24 10:33 Neut # (Auto) 13.56 10^3/uL (1.8-7.7) H 05/24/24 10:33 Lymph # (Auto) 0.4 10^3/uL (0.8-4.8) L 05/24/24 10:33 [place] # (Auto) 0.5 10^3/uL (0.2-0.9) 05/24/24 10:33 Eos # (Auto) 0.0 10^3/uL (0.0-0.8) 05/24/24 10:33 Baso # (Auto) 0.1 10^3/uL (0.0-0.1) 05/24/24 10:33 Nucleated RBC % (auto) 0 % 05/24/24 10:33 Nucleated RBCs # 0.0 /100WBC 05/24/24 10:33 Sodium 127 mmol/L (136-145) L 05/24/24 10:33 Potassium 5.4 mmol/L (3.5-5.1) H 05/24/24 10:33 Chloride 97 mmol/L (98-107) L 05/24/24 10:33 Carbon Dioxide 13 mmol/L (22-29) L 05/24/24 10:33 Anion Gap 22.4 (5-19) H 05/24/24 10:33 BUN 64 mg/dL (6-20) H 05/24/24 10:33 Creatinine 5.6 mg/dL (0.7-1.2) H* 05/24/24 10:33 GFR Calculation 10.6 mL/min (90-130) L 05/24/24 10:33 Glucose 317 mg/dL (65-115) H 05/24/24 10:33 POC Glucose 344 mg/dL (70-110) H 05/24/24 11:23 Calculated Osmolality 294 mOsm/kg (285-295) 05/24/24 10:33 Lactic Acid 2.3 mmol/L (0.5-2.2) H 05/24/24 10:33 Lactic Acid (Sepsis) 1.9 mmol/L (0.5-2.2) 05/24/24 13:05 Calcium 8.5 mg/dL (8.5-10.5) 05/24/24 10:33 Total Bilirubin 0.4 mg/dL (0.15-1.2) 05/24/24 10:33 AST 19 U/L (0-40) 05/24/24 10:33 ALT 22 U/L (0-41) 05/24/24 10:33 Alkaline Phosphatase 93 U/L (40-130) 05/24/24 10:33 Troponin T Baseline 39 ng/L (0-15) H 05/24/24 10:33 Troponin T 120 Minute 33.62 ng/L (0-15) H 05/24/24 13:00 Delta Troponin T -5.38 ABS# (0-10) L 05/24/24 13:00 Troponin T Hi Sens 6Hr 36.56 ng/L (0-15) H 05/24/24 16:24 Troponin T Hi Sens 6Hr Delta -2.44 ng/L (0-12) L 05/24/24 16:24 Total Protein 6.5 g/dL (6.6-8.7) L 05/24/24 10:33 Albumin 2.8 g/dL (3.5-5.2) L 05/24/24 10:33 Globulin 3.7 g/dL (1.3-4.6) 05/24/24 10:33 Lipase 6 U/L (13-60) L 05/24/24 10:33 TSH 2.68 uIU/mL (0.27-4.20) 05/24/24 10:33 Urine Color Yellow (Yellow) 05/24/24 11:27 Urine Appearance Cloudy (CLEAR) A 05/24/24 11:27 Urine pH 5 (5-7) 05/24/24 11:27 Ur Specific [place] 1.010 (1.005-1.030) 05/24/24 11:27 Urine Protein 3+ (Negative) H 05/24/24 11:27 Urine Glucose (UA) Norm (Normal) 05/24/24 11:27 Urine Ketones 1+ (Negative) H 05/24/24 11:27 Urine Blood 3+ (Negative) H 05/24/24 11:27 Urine Nitrate Negative (Negative) 05/24/24 11:27 Urine Bilirubin Neg (Negative) 05/24/24 11:27 Urine Urobilinogen Norm mg/dL (Negative) 05/24/24 11:27 Ur Leukocyte Esterase 2+ (Negative) H 05/24/24 11:27 Urine RBC >100 /hpf (0-2) 05/24/24 11:27 Urine WBC 10-15 /hpf (0-5) H 05/24/24 11:27 Ur Squamous Epith Cells None /hpf (0-5) 05/24/24 11:27 Amorphous Sediment Trace /hpf 05/24/24 11:27 Urine Bacteria Trace /hpf (NONE) 05/24/24 11:27 Urine Mucus Trace /hpf 05/24/24 11:27 Serum Ketones Negative (Negative) 05/24/24 10:33 All radiology interpretation(s) finalized by discharge Critical Care Time 2 Critical Care Time: Critical Care Time: Yes Total Critical Care Time: 60 Attestation: The high probability of a clinically significant, sudden or life threatening deterioration of the patient's cardiovascular renal system(s) required my full and direct attention, intervention and personal management. The critical care time is as shown. This time is in addition to time spent performing any reported procedures but includes the following: [x] Data and vital sign review and interpretation [x] Patient assessment, examination and intervention [x] Documentation [x] Medication orders and management Discharge Plan Discharge Patient Disposition: Xfer Short-Term Hosp Clinical Impression: Acute pyelonephritis, Abscess of left kidney, Sepsis, Acute kidney injury, Atrial fibrillation with RVR, Hyperkalemia Condition: Stable Referrals: Suha Ott, [employer]ER-C [Primary Care Provider] - Coding Level of Care Code ED Pony Rougher for Shaylee Arellano
--- NOTE | 2024-05-24 10:56 | ECG_ITS ---
[facility] Test Date: 2024-05-24 Pat Name: Jose Rafael Silva Department: Room: Gender: Male Shot Peening Operator: : 1965 Requested By: Michael Childs Order Number: [id number] Iván MD: Chelsy Aguayo M.D. Measurements Intervals [place] Rate: 121 P: 0 FL: 0 QRS: 79 QRSD: 97 T: 59 QT: 270 QTc: 383 Interpretive Statements ATRIAL FIBRILLATION WITH RAPID VENTRICULAR RESPONSE POSSIBLE RIGHT VENTRICULAR CONDUCTION DELAY [RSR (QR) IN V1/V2] SEPTAL MYOCARDIAL INFARCTION , OF INDETERMINATE AGE [40+ ms Q WAVE IN V1/V2] Compared to ECG 09/23/2018 11:03:52 Sinus rhythm no longer present Indeterminate axis no longer present Incomplete right bundle-branch block no longer present Myocardial infarct finding still present Electronically Signed On 05-25-2024 0:54:28 CDT by Chelsy Aguayo M.D. [email or web address]
[2024-05-24 10:57] LABS: Ketone (Acetest) Serum Negative (Negative)
[2024-05-24 10:58] LABS: Alanine Aminotransferase 22 U/L (0-41); Albumin Level 2.8 g/dL (3.5-5.2); Alkaline Phosphatase 93 U/L (40-130); Anion Gap 22.4 (5-19); Aspartate Amino Transferase 19 U/L (0-40); Blood Urea Nitrogen 64 mg/dL (6-20); Calcium 8.5 mg/dL (8.5-10.5); Carbon Dioxide 13 mmol/L (22-29); Chloride 97 mmol/L (98-107); Globulin 3.7 g/dL (1.3-4.6); Glomerular Filtration Rate 10.6 mL/min (90-130); Glucose 317 mg/dL (65-115); Osmolality Calculated 294 mOsm/kg (285-295); Potassium 5.4 mmol/L (3.5-5.1); Sodium 127 mmol/L (136-145); Total Bilirubin 0.4 mg/dL (0.15-1.2); Total Protein 6.5 g/dL (6.6-8.7)
[2024-05-24 11:04] LABS: Slide Review Slide Review Perform
[2024-05-24] MEDS: iohexol 350 mg/mL 500 mL Btl (per mL) IV (11:13)
[2024-05-24 11:16] LABS: Troponin(5th) Baseline 39 ng/L (0-15)
[2024-05-24 11:17] LABS: Creatinine Clr Calc Pharmacy 15.4604
[2024-05-24 11:21] LABS: Lipase 6 U/L (13-60); Thyroid Stimulating Hormone 2.68 uIU/mL (0.27-4.20)
[2024-05-24 11:26] LABS: Glucose Point of Care 344 mg/dL (70-110)
[2024-05-24] MEDS: sodium chloride 0.9% 2,177.25 ML 2177.25 ML IV (11:31)
[2024-05-24] MEDS: dilTIAZem 5 mg/mL SDV 5 mL 10 MG IVP (11:32)
[2024-05-24] MEDS: ondansetron 2 mg/ML SDV 2 mL 4 MG IVP (11:38)
[2024-05-24] MEDS: piperacillin-tazobactam 3.375 GM in sodium chloride 0.9% (plus) 50 ML IV (11:39)
[2024-05-24 11:45] LABS: Lactic Sepsis W/Reflex 2.3 mmol/L (0.5-2.2)
[2024-05-24] MEDS: dilTIAZem 100 MG in sodium chloride 0.9% (add-van) 100 ML IV (11:49)
[2024-05-24 12:21] LABS: Glucose Urine UA Norm (Normal); Ketones Urine 1+ (Negative); Protein Urine 3+ (Negative); Urine Appearance Cloudy (CLEAR); Urine Color Yellow (Yellow); pH Urine 5 (5-7)
[2024-05-24 12:22] LABS: Add Urine Microscopic? YES; Bilirubin Urine Neg (Negative); Blood Urine 3+ (Negative); Leukocyte Esterase Urine 2+ (Negative); Nitrate Urine Negative (Negative); Urobilinogen Urine Norm (Negative)
[2024-05-24 12:26] LABS: Add Urine Culture? Yes; Amorphous Sediment Urine TRACE /hpf; Bacteria Urine TRACE /hpf; Mucus Urine TRACE /hpf; RBC Urine >100 /hpf (0-2)
--- NOTE | 2024-05-24 12:40 | ECG_ITS ---
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 Measurements Intervals [place] Rate: 104 P: 0 SC: 0 QRS: 80 QRSD: 98 T: 55 QT: 302 QTc: 398 Interpretive Statements ATRIAL FIBRILLATION WITH RAPID VENTRICULAR RESPONSE POSSIBLE RIGHT VENTRICULAR CONDUCTION DELAY [RSR (QR) IN V1/V2] SEPTAL MYOCARDIAL INFARCTION , OF INDETERMINATE AGE [40+ ms Q WAVE IN V1/V2] Compared to ECG 05/24/2024 10:56:25 No significant changes Electronically Signed On 05-25-2024 1:06:45 CDT by Chelsy Aguayo M.D. [id number]
[2024-05-24 13:14] LABS: Reflex Lactate Order REFLEX LACTIC ORDERD
[2024-05-24 13:32] LABS: Troponin 5 2HR 33.62 ng/L (0-15)
[2024-05-24 13:41] LABS: Troponin 5 2HR Delta -5.38 ABS# (0-10)
[2024-05-24 13:54] LABS: Lactic Acid level (Lactate) 1.9 mmol/L (0.5-2.2)
[2024-05-24] MEDS: fentaNYL 50 mcg/mL INJ 2mL IVP (14:48)
--- NOTE | 2024-05-24 16:36 | ECG_ITS ---
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 Measurements Intervals [place] Rate: 121 P: 0 AL: 0 QRS: 85 QRSD: 102 T: 65 QT: 281 QTc: 400 Interpretive Statements ATRIAL FIBRILLATION WITH RAPID VENTRICULAR RESPONSE INDETERMINATE AXIS INCOMPLETE RIGHT BUNDLE BRANCH BLOCK [90+ ms QRS DURATION, TERMINAL R IN V1/V2, 40+ ms S IN I/aVL/V4/V5/V6] ABNORMAL RHYTHM ECG Compared to ECG 05/24/2024 12:44:54 Indeterminate axis now present Incomplete right bundle-branch block now present Myocardial infarct finding no longer present Electronically Signed On 05-25-2024 1:10:16 CDT by Chlesy Aguayo M.D. [id number]
[2024-05-24 17:15] LABS: Troponin 5 6HR 36.56 ng/L (0-15)
[2024-05-24 17:20] LABS: Troponin 5 6HR Delta -2.44 ng/L (0-12)
--- NOTE | 2024-05-24 17:37 | PC.NURSE ---
PATIENT UPDATED ON TRANSFER. PATIENT MADE COMFORTABLE.
[2024-05-24] MEDS: dilTIAZem 100 MG in sodium chloride 0.9% (add-van) 100 ML 15 MG IV (20:51)
== END 2024-05-24 22:07 | disposition short-term general hospital (02) ==
PROVIDERS: Emergency Provider Family Medicine; PCP Nurse Practitioner
DX: A41.9 Sepsis, unspecified organism (principal); N10 Acute pyelonephritis; N15.1 Renal and perinephric abscess; N17.9 Acute kidney failure, unspecified; I48.20 Chronic atrial fibrillation, unspecified; E87.5 Hyperkalemia; Z72.0 Tobacco use; E11.40 Type 2 diabetes mellitus with diabetic neuropathy, unspecified; E78.5 Hyperlipidemia, unspecified; I10 Essential (primary) hypertension
CPT/HCPCS: 36415; 36416; 74177; 80053; 81001; 82009; 82962; 83605; 83690; 84443; 84484; 85025; 87040; 87077; 87086; 87150; 87186; 87205; 93005; 96365; 96366; 96367; 96375; 99285; J2405; J2543; J3010; J3490; J7030; Q9967

== ENCOUNTER → 2024-06-06 13:41 | Outpatient (BNVA) | payer SELFPAY | PROVIDERS: PCP Nurse Practitioner; Visit Provider Nurse Practitioner | DX: E11.65 Type 2 diabetes mellitus with hyperglycemia (principal); Z79.4 Long term (current) use of insulin | CPT/HCPCS: 80053; 83036; 85025 ==